=== PATIENT | female | born 1930 | race Hispanic/Latino ===

== ENCOUNTER 2019-05-16 16:47 | Inpatient (IN) | payer MEDICARE ==
[~2019-05-16] VITALS: Ht 152.4 cm; Wt 65.8 kg
--- NOTE | 2019-05-16 17:08 | NUR ---
RT NOTIFIED OF NEED FOR BIPAP AT THIS TIME; DR KOROMA BEDSIDE AT THIS TIME
[2019-05-16 17:38] LABS: BASOPHILS # (AUTO) 0.1 (0.0-0.1); BASOPHILS % 0.4 % (0.0-1.0); EOSINOPHILS # (AUTO) 0.1 (0.0-0.4); EOSINOPHILS % 0.4 % (0.0-6.0); HEMATOCRIT 32.2 % (34.2-44.1); HEMOGLOBIN 10.2 g/dL (12.0-16.0); LYMPHOCYTES # (AUTO) 1.6 (1.0-3.2); LYMPHOCYTES % 7.9 % (18.0-39.1); MEAN CORPUSCULAR HEMOGLOBIN 28.7 pg (28-32); MEAN CORPUSCULAR HGB CONC 31.7 g/dL (31-35); MEAN CORPUSCULAR VOLUME 90.7 fL (81-99); MONOCYTES # (AUTO) 0.7 (0.2-0.8); MONOCYTES % 3.2 % (4.4-11.3); NEUTROPHILS # (AUTO) 17.5 (2.1-6.9); NEUTROPHILS % 86.8 % (38.7-80.0); PLATELET COUNT 275 x10e3/uL (140-360); RED BLOOD COUNT 3.55 x10e6/uL (3.6-5.1); RED CELL DISTRIBUTION WIDTH 14.6 % (11.7-14.4)
[2019-05-16 17:53] LABS: ALBUMIN 3.5 g/dL (3.5-5.0); ALBUMIN/GLOBULIN RATIO 0.9 (0.8-2.0); ANION GAP 16.9 mmol/L (8-16); CALCIUM 9.6 mg/dL (8.4-10.2); CREATININE, SERUM 1.13 mg/dL (0.57-1.11); POTASSIUM 3.9 mmol/L (3.5-5.1)
[2019-05-16 17:59] LABS: CREATINE KINASE MB 0.9 ng/mL (0-5.0)
[2019-05-16] MEDS ORDERED: ONDANSETRON HCL INJ 2MG/ML 2ML 2 MG/ML VIAL IV PRN (18:00)
[2019-05-16] MEDS ORDERED: SODIUM CHLORIDE 0.9% 1000ML 1,000 ML IV SCH (18:00)
--- NOTE | 2019-05-16 18:02 | NUR ---
pt straight cath per md orders via aseptic technique; urine output approx 600 cc md notified; ua collected and sent to lab
[2019-05-16] MEDS: PIPER-TAZ 3.375 GM 50 ML IV SCH (18:11)
[2019-05-16] MEDS: SODIUM CHLORIDE 0.9% 1000ML 1,000 ML IV SCH ×2 (18:11→19:57)
--- NOTE | 2019-05-16 18:12 | Diagnostic Imaging Report ---
Examination: Single AP view of the chest. COMPARISON: None. INDICATION: Shortness of breath, CHF, recently hospitalized for pneumonia IMPRESSION: 1. Lines and Tubes: Left upper chest multiple lead cardiac device. 2. Lungs are well-inflated. Bilateral interstitial opacities extending from the alfonso. Increased bibasilar density and obscuration of bilateral hemidiaphragms consistent with bilateral pleural effusions and likely underlying compressive atelectasis or consolidation.. Findings likely represent decompensated CHF. 3. Cardiac silhouette is obscured. Central pulmonary venous congestion. 4. No acute bony abnormalities. Signed by: Dr. Brent De Santiago M.D. on 05/16/2019 6:08 PM
[2019-05-16 18:27] LABS: CLARITY,URINE SL CLOUDY (CLEAR); COLOR,URINE YELLOW (YELLOW); LEUKOCYTE ESTERASE ,URINE NEGATIVE (NEGATIVE); NITRITE,URINE NEGATIVE (NEGATIVE); PROTEIN,URINE DIPSTICK 1+ (NEGATIVE); URINE UROBILINOGEN 0.2 mg/dL (0.2 - 1)
[2019-05-16 18:28] LABS: BILIRUBIN,URINE NEGATIVE (NEGATIVE); KETONES,URINE NEGATIVE (NEGATIVE)
[2019-05-16 18:39] LABS: ABG HCO3 23 mmol/L (23-28); ABG PCO2 38 mmHg (41-51); ABG PH 7.39 (7.31-7.41); ABG PO2 70 mmHg (80-105)
[2019-05-16 18:48] LABS: BACTERIA,URINE MODERATE /HPF; EPITHELIAL CELLS,URINE FEW /LPF; RBC,URINE 0-5 /HPF (0-5)
[2019-05-16] MEDS ORDERED: LEVOFLOXACIN 750MG/D5W 150ML 150 ML IV SCH (19:15)
[2019-05-16 23:00] VITALS: BP 139/68
[2019-05-16 23:58] VITALS: BP 139/68
[2019-05-17] VITALS (26 sets, daily range): BP systolic 92–164; BP diastolic 49–72
[2019-05-17] MEDS: PIPER-TAZ 3.375 GM 50 ML IV SCH ×3 (00:37→12:15)
[2019-05-17] MEDS ORDERED: TRESIBA100 UNIT/1 SQ (02:42)
[2019-05-17] MEDS ORDERED: FUROSEMIDE40 MG PO (02:42)
[2019-05-17] MEDS ORDERED: GABAPENTIN300 MG PO (02:42)
[2019-05-17] MEDS ORDERED: WARFARIN SODIUM3 MG PO (02:42)
[2019-05-17] MEDS ORDERED: MEGARED OMEGA-1 EAC1 PO (02:42)
[2019-05-17] MEDS ORDERED: LISINOPRIL10 MG PO (02:42)
[2019-05-17] MEDS ORDERED: LEVOTHYROXINE50 MCG PO (02:42)
[2019-05-17] MEDS ORDERED: TRADJENTA5 MG PO (02:42)
[2019-05-17] MEDS ORDERED: SIMVASTATIN40 MG PO (02:42)
[2019-05-17] MEDS ORDERED: VITAMIN D400 UNIT PO (02:42)
[2019-05-17 02:57] LABS: CREATINE KINASE MB 1.9 ng/mL (0-5.0)
[2019-05-17 05:42] LABS: BASOPHILS # (AUTO) 0.1 (0.0-0.1); BASOPHILS % 0.4 % (0.0-1.0); EOSINOPHILS # (AUTO) 0.1 (0.0-0.4); EOSINOPHILS % 0.6 % (0.0-6.0); HEMATOCRIT 24.6 % (34.2-44.1); HEMOGLOBIN 7.7 g/dL (12.0-16.0); LYMPHOCYTES # (AUTO) 1.7 (1.0-3.2); LYMPHOCYTES % 11.9 % (18.0-39.1); MEAN CORPUSCULAR HEMOGLOBIN 28.6 pg (28-32); MEAN CORPUSCULAR HGB CONC 31.3 g/dL (31-35); MEAN CORPUSCULAR VOLUME 91.4 fL (81-99); MONOCYTES # (AUTO) 0.6 (0.2-0.8); MONOCYTES % 4.1 % (4.4-11.3); NEUTROPHILS # (AUTO) 11.4 (2.1-6.9); NEUTROPHILS % 81.9 % (38.7-80.0); PLATELET COUNT 180 x10e3/uL (140-360); RED BLOOD COUNT 2.69 x10e6/uL (3.6-5.1); RED CELL DISTRIBUTION WIDTH 14.7 % (11.7-14.4)
[2019-05-17 06:08] LABS: CREATINE KINASE MB 1.8 ng/mL (0-5.0)
[2019-05-17 06:47] LABS: CALCIUM 8.2 mg/dL (8.4-10.2); CREATININE, SERUM 1.03 mg/dL (0.57-1.11)
[2019-05-17] MEDS ORDERED: DEXTROSE 50% SYRINGE 50 ML IV PRN (07:00)
[2019-05-17] MEDS: INSULIN LISPRO 100 UNIT/1 ML 3ML VIAL SQ SCH ×4 (08:24→20:54)
[2019-05-17] MEDS: FAMOTIDINE 20 MG/2 ML VIAL IV SCH ×2 (08:24→17:24)
--- NOTE | 2019-05-17 13:34 | History and Physical ---
HISTORY OF PRESENT ILLNESS: The patient is an 88-year-old female, who was recently discharged about 2 weeks ago from [facility] for pneumonia. The patient was brought from [place] to [place] by her daughter and on route, the patient noted that she had increased shortness of breath and at this point of time came to the office yesterday. A chest x-ray revealed acute bilateral pneumonia and also congestive heart failure. The patient was sent to the emergency room, kept in ICU with a BiPAP machine for acute respiratory failure and also for congestive heart failure. PAST MEDICAL HISTORY: History of pneumonia as mentioned, history of CHF, history of diabetes mellitus, history of hypertension, history of hyperlipidemia, history of anemia. PAST SURGICAL HISTORY: History of CABG, history of cholecystectomy, history of AICD placement, history of carotid endarterectomy, history of bladder suspension. SOCIAL HISTORY: No EtOH. No IV drug abuse. The patient is living at this point of time with her daughter. REVIEW OF SYSTEMS: Negative for chest pain. Positive for some shortness of breath. No nausea, no vomiting. No diarrhea. No constipation. No rectal bleeding. Positive for urinary retention according to her and daughter. The patient does fine from [id number], but has urinary retention, has been cathed straight cathed before. ALLERGIES: THE PATIENT HAS NO DRUG ALLERGIES. PHYSICAL EXAMINATION: GENERAL: The patient is alert and oriented x3, on BiPAP at this time. VITAL SIGNS: Temperature is 97.8, pulse of 78, respirations of 22, blood pressure is 127/63, pulse oximetry 100% on BiPAP. HEENT: Normocephalic, atraumatic. CVS: S1 and S2, tachy. ABDOMEN: Nontender and nondistended. EXTREMITIES: No clubbing, no cyanosis, and positive for 2+ edema. LABORATORY VALUES: The patient's initial white count is 20,000, hemoglobin of 10.2, hematocrit of 32.2, neutrophil count is 86.8. Initial chemistry showed a creatinine of 1.13, BUN of 33. Lactic acid was 2.5 with BNP of 1538. Urine, which showed moderate amount of bacteria. Serology, influenza A and B negative. MICROBIOLOGY: Blood cultures are pending. IMAGING STUDIES: Chest x-ray shows pulmonary edema and pneumonia. The patient's medications at this time the patient is on Zosyn and Levaquin. The patient is also on sodium chloride and Zofran and a BiPAP. ASSESSMENT: 1. Sepsis, probably from pneumonia. Plan will be to consult Dr. Gonzalez and also a consult for sputum culture. CT scan of the lungs will be needed. 2. Pneumonia, community-acquired. 3. Urinary retention. 4. Acute renal failure. 5. History of coronary artery disease with a history of automatic implantable cardioverter-defibrillator and placement and history of carotid endarterectomy and finally acute on chronic congestive heart failure. PLAN: The plan would be to do echocardiogram. Consult Dr. Mendez. Also consult with Dr. Gonzalez was done. The patient needs sputum cultures and also will put on insulin sliding for the diabetes. We will continue to monitor the patient. We will keep the patient in the ICU for acute respiratory failure. Further recommendation per clinical course. We will continue to monitor the patient. MD ANABEL Tucker/MODL /[id number]
[2019-05-17] MEDS ORDERED: FUROSEMIDE INJ 10 MG/ML 4 ML VIAL IV ONE (15:30)
[2019-05-17] MEDS ORDERED: FUROSEMIDE INJ 10 MG/ML 4 ML VIAL ONE (15:33)
--- NOTE | 2019-05-17 16:16 | Diagnostic Imaging Report ---
Chest ultrasound. History: Pleural effusions. Comparison: Chest x-ray from yesterday. Discussion: Transverse and longitudinal sonographic imaging of the bilateral posterior chest was performed. Moderate bilateral pleural effusions are identified. IMPRESSION: Moderate bilateral pleural effusions. Signed by: uJng Flores on 05/17/2019 4:13 PM
[2019-05-17 16:30] LABS: ALBUMIN 2.7 g/dL (3.5-5.0); BILIRUBIN,DIRECT 0.6 mg/dL (0.0-0.5)
--- NOTE | 2019-05-17 17:06 | Diagnostic Imaging Report ---
Abdominal ultrasound. History: Pneumonia, hypoxia. Comparison: None available. Discussion: Transverse and longitudinal images of the abdomen were obtained demonstrating a liver of normal size and echogenicity measuring 13.5 cm in length. The portal vein is patent with hepatopetal flow and is within normal limits measuring 9 mm in diameter. The biliary tree is within normal limits with the common bile duct measuring 8 mm in diameter. The gallbladder is absent. The kidneys are normal in size bilaterally without evidence of hydronephrosis, stones, or mass. There is mild increase in cortical echogenicity bilaterally. The right kidney measures 9.9 cm and the left kidney measures 10.1 cm in length. The spleen is normal in size and appearance measuring 7.8 cm in length. The pancreatic head and body are visualized and are normal in appearance. The abdominal aorta and IVC are within normal limits. There is no evidence of free fluid. IMPRESSION: 1. Mildly increased renal echogenicity suggestive of medical renal disease. 2. Status post cholecystectomy. Otherwise unremarkable abdominal ultrasound. Signed by: Jung Flores on 05/17/2019 5:03 PM
[2019-05-17] MEDS: CEFEPIME 1GM/NS 0.9% 50 ML 50 ML IV SCH (17:24)
[2019-05-17] MEDS: ENOXAPARIN 30 MG/0.3 ML SYR SC SCH (17:24)
[2019-05-17] MEDS: FUROSEMIDE INJ 10 MG/ML 2 ML VIAL IV SCH (17:24)
[2019-05-17] MEDS: VANCOMYCIN 1GM/NS 250 ML 250 ML IV SCH (18:16)
--- NOTE | 2019-05-17 21:11 | Consultation ---
DATE OF CONSULTATION: 05/17/2019 Pulmonary Medicine Consult. REFERRING PHYSICIAN: Chucho Cerna MD. REASON FOR REFERRAL: Abnormal chest radiography. HISTORY OF PRESENT ILLNESS: Ms. Waldrop is a pleasant 88-year-old female with shortness of breath. The patient was discharged a couple weeks ago from the outside hospital with pneumonia. The patient was brought to [place] to live with her daughter. However, the patient had increasing shortness of breath, chest x-ray with combined pneumonia/overload appearance. The patient had a pattern of worsening. Therefore, she came to the emergency room. The patient at this point, had to get BiPAP for rescue given her extensive shortness of breath. She is admitted to the ICU. I am consulted. PAST MEDICAL HISTORY: CHF, LVEF 40%, moderate MR, CABG, AICD, carotid endarterectomy, diabetes, hypertension, hyperlipidemia, anemia, history of bladder suspension, recent pneumonia. MEDICATIONS: Medication list reviewed per the chart record. ALLERGIES: NO KNOWN DRUG ALLERGIES. SOCIAL HISTORY: No smoking. No drinking. No drugs. The patient only smokes one year of her life. She is from [place] where she was born. She was in 2006. She lives alone but recently has been with her children. FAMILY HISTORY: Noncontributory. REVIEW OF SYSTEMS: GENERAL: No weight changes. OPHTHALMOLOGIC: No double vision. ENT: No mouth ulcers. ENDOCRINE: Unknown thyroid disease. CARDIAC: No recent heart attack. GI: No constipation. : No blood in urine. DERMATOLOGIC: No rash. NEUROLOGIC: No seizures. PSYCHIATRIC: No depression. OBJECTIVE: VITAL SIGNS: Afebrile, vital signs noted and reviewed per the chart record. On admission, her blood pressure was 170/90, heart rate 93. GENERAL: In no acute distress, slow affect, slow demeanor, difficult historian. HEENT: Normocephalic, atraumatic. NECK: Supple. Throat midline. LUNGS: Bilateral air entry, few crackles. CARDIOVASCULAR: S1, S2. No murmurs, rubs, or gallops. ABDOMEN: Soft, nontender. EXTREMITIES: No clubbing, no cyanosis. There is only trace edema. INTEGUMENT: No rash. No purpura. LABORATORY DATA: White count 14, 25 hematocrit, 108 platelets. 31 BUN, 0.03, creatinine. LFTs noted unremarkable. The patient's albumin was 3.5 on admission. Troponin 0.29. ABG come in was 7.39/38/70 with a white count come in of 20,000. IMPRESSION: 1. Abnormal chest radiography, clinically pulmonary edema. 2. Abnormal chest radiography, bilateral moderate-sized pleural effusions. 3. Treat for pneumonia hospital acquired prior to admission. 4. Systolic acute on chronic CHF, LVEF 40%. 5. Apparent mitral valve replacement seen per preliminary echo report. 6. 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 7. History of AICD line. 8. Peripheral vascular disease, status post CVA. 9. Diabetes. 10. Hypertension. 11. Hyperlipidemia. 12. Anemia. PLAN At this point, continue antibiotics for hospital-acquired organisms and consider deescalation days that come. Blood cultures are pending. Order sputum culture as she is able to give. In the meanwhile check ultrasound of thoraces and consider thoracentesis. Optimize cardiac medications as feasible. Try to get more history of course from Cardiology and the final echo report to confirm the extent of any coronary artery disease or valvulopathy that were present in the past. Thank you very much, Dr. Cerna for allowing me a chance to participate in the care of Ms. Waldrop. Please call for any questions. MD KOKO Phelan/HEIDY /[id number]
--- NOTE | 2019-05-17 21:56 | Consultation ---
DATE OF CONSULTATION: 05/17/2019 ADDENDUM: IMPRESSION: 1. Acute hypoxic respiratory failure. 2. Suspected pneumonia. 3. Acute on chronic systolic heart failure. 4. Coronary artery disease, status post bypass. 5. Carotid artery stenosis, status post carotid endarterectomy. 6. Chronic systolic heart failure, status post AICD. 7. Acute kidney injury versus chronic kidney disease. 8. Hypertension. 9. Hyperlipidemia. 10. Diabetes mellitus. 11. Anemia. RECOMMENDATIONS: Obtain echocardiogram. Monitor on telemetry. We will continue current cardiac medications. Continue supportive care. Antibiotics per Primary Service. Once the patient's infection has resolved, she will need diuresis for her systolic heart failure. In the meantime, monitor volume status closely, attempt to keep the patient euvolemic, two net-negative daily. Thank you for this consult. We will continue to follow. Syl Nowak MD ABS/MODL /[id number]
--- NOTE | 2019-05-17 22:20 | NUR ---
Report given to [facility]. Pt transferred. No complaints at this time.
--- NOTE | 2019-05-17 22:26 | Consultation ---
DATE OF CONSULTATION: 05/17/2019 REASON FOR CONSULTATION: Pneumonia, sepsis, recommendation of antibiotic. HISTORY OF PRESENT ILLNESS: This patient, who is currently in the intensive care unit, is short of breath. History was taken mainly from the family. She is an 88-year-old female. She has been sick for the last couple of months. The first was on March 07 when she was in the hospital in different city for most week, was discharged home, came to visit her family here in [place], and she was taken back home. Again, she got short of breath around on April 25 something. She was admitted again to the hospital. She was there for a week, discharged home, but she continued to have shortness of breath, getting progressively worse, especially at night, so the patient and daughter brought her here to see Dr. Cerna and Dr. Cerna admitted her to the hospital. The patient is currently in the intensive care unit and on BiPAP. The patient who has history of congestive heart failure, diabetes mellitus, neuropathy, hypertension, hyperlipidemia, and anemia. PAST SURGICAL HISTORY: CABG, cholecystectomy, AICD placement, carotid endarterectomy and bladder suspension. ALLERGIES: NKA. SOCIAL HISTORY: There is no smoking, drug abuse, or alcohol abuse. FAMILY HISTORY: Hypertension. REVIEW OF SYSTEMS: At the present time, the patient has shortness of breath. There is no fever or chills, but according to the family she got worse in the last few days. There is no chest pain, but there is shortness of breath, worse if she lay down. There is no nausea, no vomiting, no diarrhea, no urgency, no frequency, no skin rash. She does have chronic pain in the both knees. All other symptoms beside above is negative. MEDICATION LIST: Reviewed. The patient is currently on Zosyn, Pepcid, levofloxacin, Lovenox and Zofran. HOME MEDICATIONS: List reviewed. PHYSICAL EXAMINATION: GENERAL: She is alert, but short of breath. VITAL SIGNS: Stable. There is no fever since admission. Her heart rate is 78, respiration is 22. HEENT: She is not icteric, normocephalic. NECK: Supple. CHEST: Few crackles bilaterally. COR: S1 and S2. ABDOMEN: Soft. Bowel sounds present. No tenderness. EXTREMITIES: No edema. SKIN: No rash. LABORATORY DATA: When she first came, her white count was 20.12, hemoglobin 10. Her platelet is 275. Sodium 140, potassium 4.0, creatinine 1.03, glucose 119. Her chest x-ray is reviewed. There are bilateral interstitial opacities. IMPRESSION: Respiratory failure, concerned about [id number]-[id number] congestive heart failure, fluid overload, concerned about community-acquired pneumonia or healthcare-associated pneumonia since she was in the hospital recently. We will put the patient on vancomycin and cefepime and discontinue Zosyn since Zosyn has high salt load. We will also obtain liver enzymes, amylase and lipase. We will get the BMP. Cardiology is consulted. Recommend echocardiogram. Discussed with Pulmonary, may end up on a respiratory support. Discussed with the family. Diabetes mellitus. We will follow with you. Thank you for asking me to see this patient. Discussed with the family. Discussed with Pulmonary and Internal Medicine. MD GÓMEZ Sears/HEIDY /[id number]
--- NOTE | 2019-05-17 22:30 | NUR ---
resumed pt care. upon assessment pt requesting bipap. respiratory notified. chatterjee draining to gravity. tele in place. will cont to follow poc. call mckeon within reach.
[2019-05-18] VITALS (8 sets, daily range): BP systolic 110–173; BP diastolic 61–99
--- NOTE | 2019-05-18 | NUR ---
pt made npo at time for procedure. no distress noted. call mckeon within reach.
--- NOTE | 2019-05-18 01:00 | NUR ---
pt restless at time. sitting at side of bed. after minutes of sitting at bedside. pt was assisted back to bed and bipap replaced. no distress noted. call mckeon within reach.
--- NOTE | 2019-05-18 03:02 | NUR ---
spoke to dr leyva in regards to pt and ptt orders. stated ok to draw in with am labs. notified laboratory.
[2019-05-18] MEDS: CEFEPIME 1GM/NS 0.9% 50 ML 50 ML IV SCH ×2 (03:39→17:39)
[2019-05-18] MEDS: VANCOMYCIN 1GM/NS 250 ML 250 ML IV SCH ×2 (04:32→17:39)
--- NOTE | 2019-05-18 04:37 | Consultation ---
DATE OF CONSULTATION: 05/17/2019 Cardiology Consultation REQUESTING PHYSICIAN: Chucho Cerna MD. REASON FOR CONSULTATION: Congestive heart failure. HISTORY OF PRESENT ILLNESS: This is an 88-year-old woman with congestive heart failure, hypertension, hyperlipidemia, diabetes mellitus, and AICD, who presents with complaints of shortness of breath. The patient was reportedly admitted in the hospital 2 weeks ago in [place] for pneumonia. After discharge, she was brought to [place] from [place] by her daughter. The patient had increasing shortness of breath yesterday and was brought to the office for further evaluation. Chest x-ray revealed bilateral pneumonia and congestive heart failure, and was therefore sent to the ER for a further care. She was subsequently admitted to the ICU for BiPAP support for her acute respiratory failure. She denies any chest pain, palpitations, edema, fever, or chills, but does endorse symptoms suggestive of orthopnea and PND. REVIEW OF SYSTEMS: Negative except as per HPI. PAST MEDICAL HISTORY: 1. Congestive heart failure status post AICD. 2. Hypertension. 3. Hyperlipidemia. 4. Coronary artery disease status post CABG. PAST SURGICAL HISTORY: 1. CABG. 2. Cholecystectomy. 3. Carotid endarterectomy. 4. History of bladder suspension. ALLERGIES: PLEASE SEE EMR. MEDICATIONS: Please see medication list. SOCIAL HISTORY: No alcohol, illicit drugs, or prior tobacco use. FAMILY HISTORY: Noncontributory to current illness. PHYSICAL EXAMINATION: VITAL SIGNS: Temperature 98.4 degrees, pulse 84, respiratory rate 16, blood pressure 128/64, and oxygen saturation 97% on 2 L nasal cannula. GENERAL: Elderly woman. No acute distress. Awake and alert. HEENT: Normocephalic, atraumatic. Pupils equal. No scleral icterus. NECK: Supple. No thyromegaly or cervical lymphadenopathy. No carotid bruits. LUNGS: Clear to auscultation bilaterally. No wheezes or crackles. CARDIOVASCULAR: Normal rate. Regular rhythm. No murmur. Normal S1, S2. ABDOMEN: Soft, nontender. EXTREMITIES: 1+ pitting edema. NEUROLOGIC: Nonfocal exam. LABORATORY DATA: WBC 13.98, hemoglobin 7.7, hematocrit 24.6, platelets 180. Sodium 140, potassium 4, chloride 105, CO2 of 25, BUN 31, creatinine 1.03. Troponin 0.290. BNP 1538. DIAGNOSTIC DATA: Chest x-ray, bilateral interstitial opacities extending from the alfonso, increased bibasilar density and obstruction of bilateral hemidiaphragms consistent with bilateral pleural effusions and likely underlying compressive atelectasis or consolidation. Central pulmonary venous congestion. EKG, normal sinus rhythm. TELEMETRY: A paced. IMPRESSION: 1. Acute hypoxic respiratory failure. 2. Suspected pneumonia. 3. Acute on chronic systolic heart failure. 4. Coronary artery disease, status post bypass. 5. Carotid artery stenosis, status post carotid endarterectomy. 6. Chronic systolic heart failure, status post AICD. 7. Acute kidney injury versus chronic kidney disease. 8. Hypertension. 9. Hyperlipidemia. 10. Diabetes mellitus. 11. Anemia. RECOMMENDATIONS: Obtain echocardiogram. Monitor on telemetry. We will continue current cardiac medications. Continue supportive care. Antibiotics per Primary Service. Once the patient's infection has resolved, she will need diuresis for her systolic heart failure. In the meantime, monitor volume status closely, attempt to keep the patient euvolemic, two net-negative daily. Thank you for this consult. We will continue to follow. Syl Nowak MD ABS/MODL /[id number]
--- NOTE | 2019-05-18 04:38 | NUR ---
pt removed bipap at time. no distress noted. o2 nc 3 lit 100%. no ss of distress noted. call mckeon within reach.
[2019-05-18] MEDS: FUROSEMIDE INJ 10 MG/ML 2 ML VIAL IV SCH ×2 (05:23→17:40)
[2019-05-18 05:33] LABS: BASOPHILS # (AUTO) 0.1 (0.0-0.1); BASOPHILS % 0.4 % (0.0-1.0); EOSINOPHILS # (AUTO) 0.2 (0.0-0.4); EOSINOPHILS % 1.3 % (0.0-6.0); HEMATOCRIT 25.4 % (34.2-44.1); HEMOGLOBIN 8.2 g/dL (12.0-16.0); LYMPHOCYTES # (AUTO) 1.6 (1.0-3.2); LYMPHOCYTES % 10.3 % (18.0-39.1); MEAN CORPUSCULAR HEMOGLOBIN 29.5 pg (28-32); MEAN CORPUSCULAR HGB CONC 32.3 g/dL (31-35); MEAN CORPUSCULAR VOLUME 91.4 fL (81-99); MONOCYTES # (AUTO) 0.6 (0.2-0.8); MONOCYTES % 3.7 % (4.4-11.3); NEUTROPHILS # (AUTO) 12.9 (2.1-6.9); NEUTROPHILS % 83.2 % (38.7-80.0); PLATELET COUNT 213 x10e3/uL (140-360); RED BLOOD COUNT 2.78 x10e6/uL (3.6-5.1); RED CELL DISTRIBUTION WIDTH 14.8 % (11.7-14.4)
--- NOTE | 2019-05-18 05:47 | NUR ---
pump cont to beep. new iv access to right forearm 20g successful. pt tolerated well. call mckeon within reach.
[2019-05-18 05:59] LABS: ANION GAP 15.5 mmol/L (8-16); CALCIUM 8.6 mg/dL (8.4-10.2); CREATININE, SERUM 1.16 mg/dL (0.57-1.11); MAGNESIUM 1.7 MG/DL (1.3-2.1); POTASSIUM 3.5 mmol/L (3.5-5.1)
[2019-05-18 06:45] LABS: INR 1.6; PROTHROMBIN TIME 19.7 seconds (11.9-14.5)
[2019-05-18 06:46] LABS: PARTIAL THROMBOPLASTIN TIME 43.4 seconds (23.8-35.5)
--- NOTE | 2019-05-18 06:48 | NUR ---
pt stated needed to have bm. attempted to get up to bsc pt became sob. assisted back to bed and bipap replaced. respiratory notified.
--- NOTE | 2019-05-18 07:00 | NUR ---
pt refusing to wear bipap. 02 nc placed back on. 100% on 3 lit nc. no distress noted. call mckeon within reach.
[2019-05-18] MEDS: INSULIN LISPRO 100 UNIT/1 ML 3ML VIAL SQ SCH ×4 (07:30→21:41)
[2019-05-18] MEDS: FAMOTIDINE 20 MG/2 ML VIAL IV SCH ×3 (09:59→21:43)
--- NOTE | 2019-05-18 09:59 | Progress Note ---
DATE: 05/18/2019 SUBJECTIVE: An 88-year-old female, who comes in with bilateral pleural effusion, possibly pneumonia versus congestive heart failure. The patient is feeling a bit better today on BiPAP, continues to be on BiPAP, followed by Cardiology and by Dr. Gonzalez for Pulmonology. Currently, no chest pain. Positive for shortness of breath. OBJECTIVE: VITAL SIGNS: Temperature is 97.8, pulse of 87, respirations of 20, blood pressure is 144/61, and pulse oximetry 100% on 3 liters of oxygen. CVS: S1 and S2, tachy. ABDOMEN: Nontender and nondistended. EXTREMITIES: No clubbing. No cyanosis. Trace edema present. LABORATORY VALUES: White count is coming down to 15,000, hemoglobin of 8.2, hematocrit 25.4, and neutrophil count of 83.2. Chemistry shows sodium 143, potassium 3.5, BUN of 29, and creatinine of 1.16. The patient had a fluid tap yesterday, awaiting cell studies. MICROBIOLOGY: Blood cultures, no growth so far. IMAGING STUDIES: Abdominal ultrasound done yesterday showed mild increased renal echogenicity with mild medical renal disease. ASSESSMENT: At this time is: 1. Pneumonia. The patient has been changed from Zosyn to vancomycin by Dr. Brown. 2. Acute on chronic congestive heart failure. Continue with monitoring ins and outs and fluid load. Echocardiogram has been done. The patient is also on cefepime. 3. Debility, will need SNF placement as an outpatient basis. 4. Leukocytosis, better with change of antibiotics. 5. Pleural effusion. Awaiting tap results. 6. Hypertension. 7. History of peripheral vascular disease, status post cerebrovascular accident. 8. History of AICD and history of coronary artery bypass grafting. PLAN: Continue to monitor the patient in IMCU. Further recommendation per clinical course. We will follow the patient along with consultants. MD ANABEL Tucker/MODL /[id number]
[2019-05-18 10:24] LABS: ALBUMIN 2.8 g/dL (3.5-5.0); BILIRUBIN,DIRECT 0.5 mg/dL (0.0-0.5)
[2019-05-18 10:47] LABS: FREE THYROXINE INDEX 2.697 (1.4-3.8); THYROID STIMULATING HORMONE 3.635 uIU/mL (0.350-4.940)
--- NOTE | 2019-05-18 11:50 | Progress Note ---
DATE: 05/18/2019 Cardiology Progress Note SUBJECTIVE: The patient denies chest pain or shortness of breath. Currently on BiPAP. OBJECTIVE: VITAL SIGNS: Temperature 97.4 degrees, pulse 95, respiratory rate 20, blood pressure 173/99, oxygen saturation 100% on BiPAP. GENERAL: Elderly woman, frail. No acute distress. Awake and alert. LUNGS: Clear to auscultation bilaterally. No wheezes or crackles. CARDIOVASCULAR: Normal rate, regular rhythm. No murmur. Normal S1, S2. ABDOMEN: Soft, nontender. EXTREMITIES: Trace edema. CARDIAC MEDICATIONS: Lasix 20 mg IV b.i.d. LABORATORY DATA: WBC 15.47, hemoglobin 8.2, hematocrit 25.4, platelets 213, sodium 143, potassium 3.5, chloride 105, CO2 of 26, BUN 29, and creatinine 1.16. TELEMETRY: Normal sinus rhythm with PVCs. IMPRESSION: 1. Acute hypoxic respiratory failure. 2. Suspected pneumonia. 3. Acute on chronic systolic heart failure. 4. Coronary artery disease, status post bypass. 5. Carotid artery stenosis, status post carotid endarterectomy. 6. Chronic systolic heart failure, status post automatic implantable cardioverter defibrillator. 7. Acute kidney injury versus chronic kidney disease. 8. Hypertension. 9. Hyperlipidemia. 10. Diabetes mellitus. 11. Anemia. RECOMMENDATIONS: Echocardiogram is pending. We will review the images. Monitor patient closely on telemetry. Continue diuretics. Increase frequency. Monitor creatinine closely. Replete electrolytes. Continue supportive care. Antibiotics per primary service. Thank you for this consult. We will continue to follow. Syl Nowak MD ABS/MODL /[id number]
--- NOTE | 2019-05-18 14:05 | Diagnostic Imaging Report ---
Chest, portable AP view History: Status post right thoracentesis Comparison: 05/16/2019 IMPRESSION: There is no postprocedural pneumothorax. No significant right pleural effusion remains. Trace left pleural effusion is present. The heart is within normal limits of size. Patient is status post median sternotomy. Left subclavian pacemaker is in place. Signed by: Dax Burroughs MD on 05/18/2019 2:02 PM
--- NOTE | 2019-05-18 14:07 | Diagnostic Imaging Report ---
Ultrasound guided right thoracentesis, 05/18/2019. Clinical History: Right pleural effusion. Modality: Ultrasound. Sedation: None. Regional Service Manager: Dax Burroughs MD. Applied Psychology Chair: None. Estimated Blood Loss: 1cc Specimen: 700 cc of yellow fluid. Technique: Informed consent was obtained. The risks of pain, bleeding, infection, lung collapse/pneumothorax, injury to adjacent structures, and adverse medication reactions were discussed with the patient. The patient's right hemithorax was scanned from the back, with the patient in a sitting position. After the largest fluid pocket area was marked, the skin was prepped and draped in the usual sterile manner. The area was anesthetized with 1% lidocaine, a 5 Barb[place] one-step was advanced into the pleural space under ultrasound guidance. After completion of drainage, the catheter was removed. There was no evidence of immediate complication. Post procedure chest radiograph is no evidence of pneumothorax. Impression: Successful and uncomplicated ultrasound guided right thoracentesis. Signed by: Dax Burroughs MD on 05/18/2019 2:03 PM
[2019-05-18 15:17] LABS: BODY FLUID APPEARANCE SL.CLOUDY; BODY FLUID COLOR YELLOW; BODY FLUID TYPE PLEURAL
[2019-05-18 15:18] LABS: RBC,BODY FLUID 1045 cells/uL; WBC,BODY FLUID 110 cells/uL
[2019-05-18 15:22] LABS: LYMPHOCYTES,BODY FLUID 24 %; MONO/MACROPHG,BODY FLUID 29 %; NEUTROPHILS,BODY FLUID 43 %
[2019-05-18 15:23] LABS: OTHER CELLS,BODY FLUID 4 %
[2019-05-18] MEDS: ENOXAPARIN 30 MG/0.3 ML SYR SC SCH (17:00)
--- NOTE | 2019-05-18 21:42 | NUR ---
Pulmonary Medicine DATE 05/18/2019 SUBJECTIVE: Still SOB today chatterjee in place, on diuresis thoracentesis done, 700 cc out. c/w transudate RA 98% saturation bipap at night REVIEW OF SYSTEMS: No weight changes. No blood in urine. OBJECTIVE: VITAL SIGNS: vital signs noted and reviewed per the chart record. GENERAL: no acute distress, slow affect, mild dyspnea HEENT: Normocephalic, atraumatic. NECK: Supple. Throat midline. LUNGS: Bilateral air entry decreased at bases, few crackles. CARDIOVASCULAR: S1, S2. No murmurs, rubs, or gallops. ABDOMEN: Soft, nontender. EXTREMITIES: No clubbing, no cyanosis. trace edema. INTEGUMENT: No rash. No purpura. LABORATORY DATA: wbc 15k, hct 25, k 3.5, cr 1.2. IMPRESSION: 1. Abnormal chest radiography, clinically pulmonary edema suggested. 2. Abnormal chest radiography, bilateral moderate-sized pleural effusions. --s/p right thoracentesis c/w transudate 3. Treat for pneumonia hospital acquired prior to admission. 4. Systolic acute on chronic CHF, LVEF 40%. 5. hx MVR 6. 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 CAD? 7. Hx AICD 8. PVD, status post CEA. 9. Diabetes. 10. Hypertension. 11. Hyperlipidemia. 12. Anemia. PLAN continue antibiotics for hospital-acquired organisms diuresis thoracentesis today follow cultures cardiology evaluating cardiac structure and function Thank you very much, Dr. Cerna for allowing me a chance to participate in the care of Ms. Waldrop. Please call for any questions.
[2019-05-19] VITALS (8 sets, daily range): BP systolic 117–148; BP diastolic 55–92
[2019-05-19] MEDS: CEFEPIME 1GM/NS 0.9% 50 ML 50 ML IV SCH ×2 (04:08→17:00)
[2019-05-19] MEDS: VANCOMYCIN 1GM/NS 250 ML 250 ML IV SCH ×2 (04:39→16:15)
[2019-05-19 05:53] LABS: BASOPHILS # (AUTO) 0.1 (0.0-0.1); BASOPHILS % 0.4 % (0.0-1.0); EOSINOPHILS # (AUTO) 0.1 (0.0-0.4); EOSINOPHILS % 0.7 % (0.0-6.0); HEMATOCRIT 26.4 % (34.2-44.1); HEMOGLOBIN 8.2 g/dL (12.0-16.0); LYMPHOCYTES # (AUTO) 1.7 (1.0-3.2); LYMPHOCYTES % 10.6 % (18.0-39.1); MEAN CORPUSCULAR HEMOGLOBIN 28.7 pg (28-32); MEAN CORPUSCULAR HGB CONC 31.1 g/dL (31-35); MEAN CORPUSCULAR VOLUME 92.3 fL (81-99); MONOCYTES # (AUTO) 0.7 (0.2-0.8); MONOCYTES % 4.6 % (4.4-11.3); NEUTROPHILS # (AUTO) 13.2 (2.1-6.9); NEUTROPHILS % 82.6 % (38.7-80.0); PLATELET COUNT 223 x10e3/uL (140-360); RED BLOOD COUNT 2.86 x10e6/uL (3.6-5.1); RED CELL DISTRIBUTION WIDTH 14.9 % (11.7-14.4)
[2019-05-19] MEDS: FUROSEMIDE INJ 10 MG/ML 2 ML VIAL IV SCH ×2 (06:02→18:00)
[2019-05-19] MEDS: FAMOTIDINE 20 MG/2 ML VIAL IV SCH ×3 (06:02→20:54)
[2019-05-19 06:13] LABS: CALCIUM 8.8 mg/dL (8.4-10.2); CREATININE, SERUM 1.23 mg/dL (0.57-1.11)
[2019-05-19] MEDS: INSULIN LISPRO 100 UNIT/1 ML 3ML VIAL SQ SCH ×4 (07:30→20:48)
--- NOTE | 2019-05-19 07:36 | Diagnostic Imaging Report ---
EXAMINATION: CHEST SINGLE (PORTABLE) INDICATION: ^chf ^[id number] ^[id number] COMPARISON: 05/18/2019 FINDINGS: AP view TUBES and LINES: Stable 2-lead pacemaker device overlying the left upper chest with leads overlying the right uterine appendage and right ventricle. LUNGS: Lungs are well inflated. Worsening bilateral pulmonary edema. No new consolidations. Bibasilar atelectasis. PLEURA: Small bilateral pleural effusion, increased. No pneumothorax. HEART AND MEDIASTINUM: Stable mild enlargement of the cardiac silhouette. BONES AND SOFT TISSUES: No acute osseous lesion. Soft tissues are unremarkable. UPPER ABDOMEN: No free air under the diaphragm. IMPRESSION: Interval worsening bilateral pulmonary edema with increasing small bilateral pleural effusions. Signed by: Dr. Karly Moreno M.D. on 05/19/2019 7:32 AM
[2019-05-19] MEDS: POTASSIUM CHLORIDE 10MEQ EA PO SCH ×2 (09:00→09:56)
[2019-05-19] MEDS: POLYETHYLENE GLYCOL 3350 17 GM PACK PO SCH ×2 (09:56→17:59)
--- NOTE | 2019-05-19 10:57 | Progress Note ---
DATE: 05/19/2019 SUBJECTIVE: An 88-year-old female who comes in with pneumonia/congestive heart failure. The patient is currently in IMCU, on BiPAP continuously, currently hypoxic. The patient's medications include cefepime, Lovenox, famotidine, furosemide, insulin, MiraLAX, potassium, and vancomycin. Daughter is by the bedside, did complain of some constipation, otherwise short of breath. OBJECTIVE: VITAL SIGNS: Temperature is 97.7, pulse of 98, respirations of 18, blood pressure is 140/92, and pulse oximetry of 99% on BiPAP. HEENT: Normocephalic. The patient has BiPAP on. CVS: S1 and S2, tachy. ABDOMEN: Nondistended, nontender, soft. EXTREMITIES: Trace amount of edema present. LABORATORY VALUES: White count is 16,000, hemoglobin of 8.2, hematocrit of 26.4, patient's platelet count is 223. Chemistry shows sodium of 142, potassium is 3, BUN of 32, creatinine of 1.23, glucose has been running in the 250s to 280s. The patient's TSH was normal. The patient had a thoracentesis yesterday and pleural fluid shows yellow, cloudy, rbc's of 1047, neutrophils 43, glucose 157, LDH of 146. IMAGING: After thoracentesis, interval worsening bilateral pulmonary edema with increased small bilateral pleural effusion and stable 2-lead pacemaker in place. ASSESSMENT: An 88-year-old with: 1. Acute respiratory failure, hypoxic. 2. Acute on chronic congestive systolic heart failure. 3. History of coronary artery disease status post bypass. 4. Acute kidney injury. 5. Anemia of chronic kidney disease. 6. The patient has suspected pneumonia bilateral. 7. Debility. 8. Hyperlipidemia. PLAN: At this point of time will be to continue other medications. Antibiotics on board. ID is on board. The patient has also has diabetes mellitus and is on a sliding scale. DVT prophylaxis, GI prophylaxis, and Paula in place. Further recommendation per clinical course. We will continue to monitor the patient. The patient will be followed up by the consultants too and daily labs will be done. MD ANABEL Tucker/MODL /[id number]
--- NOTE | 2019-05-19 12:36 | NUR ---
Pulmonary Medicine DATE 05/19/2019 SUBJECTIVE: BM small eating small amounts standby assist to ambulate to rest room SOB noted 2 L/min oxygen low endurance REVIEW OF SYSTEMS: no headaches, no rash OBJECTIVE: VITAL SIGNS: vital signs noted and reviewed per the chart record. GENERAL: no acute distress, slow affect, mild dyspnea HEENT: Normocephalic, atraumatic. NECK: Supple. Throat midline. LUNGS: Bilateral air entry decreased at bases, few crackles. CARDIOVASCULAR: S1, S2. No murmurs, rubs, or gallops. ABDOMEN: Soft, nontender. EXTREMITIES: No clubbing, no cyanosis. trace edema. INTEGUMENT: No rash. No purpura. LABORATORY DATA: wbc 16k, hct 26 k 3.0, cr 1.23 IMPRESSION: 1. Abnormal chest radiography, clinically pulmonary edema suggested. 2. Abnormal chest radiography, bilateral moderate-sized pleural effusions. --s/p right thoracentesis c/w transudate 3. Treat for pneumonia hospital acquired prior to admission. 4. Systolic acute on chronic CHF, LVEF 40%. 5. hx MVR 6. 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 CAD? 7. Hx AICD 8. PVD, status post CEA. 9. Diabetes. 10. Hypertension. 11. Hyperlipidemia. 12. Anemia. PLAN continue antibiotics for hospital-acquired organisms diuresis thoracentesis done, follow fluid analysis. If SOB persists, will consider left thoracentesis follow cultures cardiology evaluating/optimizing cardiac structure and function Thank you very much, Dr. Cerna for allowing me a chance to participate in the care of Ms. Waldrop. Please call for any questions.
--- NOTE | 2019-05-19 16:59 | Progress Note ---
DATE: 05/19/2019 Cardiology Progress Note SUBJECTIVE: Ms. Waldrop remains weak and has some insomnia due to her BiPAP. PHYSICAL EXAMINATION: VITAL SIGNS: Afebrile, heart rate is 100, blood pressure is 148/83, and O2 saturations 100%. CARDIOVASCULAR: Regular rhythm, tachycardic. LUNGS: Occasional rhonchi bilaterally. LABORATORY DATA: Telemetry shows sinus tachycardia. Hemoglobin is 8.2 and WBC count is 16,000. Creatinine 1.2. Chest x-ray shows pleural effusions and pulmonary edema. ASSESSMENT: 1. Qwigf-zv-tlnmbfc systolic heart failure with respiratory failure. 2. Coronary artery disease, status post coronary artery bypass surgery. RECOMMENDATIONS: Echocardiogram was reviewed. Ejection fraction is 35%. The patient's medications are appropriate. I will add a beta-connor as well as an MAYA inhibitor and a cautious trial of spironolactone to help improve fluid status. MD CONCHA Davis/HEIDY /[id number]
[2019-05-19] MEDS: ENOXAPARIN 30 MG/0.3 ML SYR SC SCH (17:59)
[2019-05-19] MEDS: SPIRONOLACTONE 25 MG TAB PO SCH (17:59)
[2019-05-19] MEDS: VALSARTAN/SACUBITRIL 24MG/26MG 1 EA TAB PO SCH (17:59)
[2019-05-19] MEDS: CARVEDILOL 3.125 MG TAB PO SCH (18:00)
[2019-05-19] MEDS ORDERED: POTASSIUM CHLORIDE 10MEQ EA PO SCH (18:00)
[2019-05-20] VITALS (11 sets, daily range): BP systolic 129–146; BP diastolic 38–104
[2019-05-20] MEDS: CEFEPIME 1GM/NS 0.9% 50 ML 50 ML IV SCH ×3 (04:27→18:28)
[2019-05-20] MEDS: VANCOMYCIN 1GM/NS 250 ML 250 ML IV SCH (05:27)
[2019-05-20] MEDS: FAMOTIDINE 20 MG/2 ML VIAL IV SCH ×3 (06:01→21:46)
[2019-05-20] MEDS: FUROSEMIDE INJ 10 MG/ML 2 ML VIAL IV SCH ×2 (06:01→18:28)
[2019-05-20 06:28] LABS: BASOPHILS # (AUTO) 0.1 (0.0-0.1); BASOPHILS % 0.7 % (0.0-1.0); EOSINOPHILS # (AUTO) 0.3 (0.0-0.4); EOSINOPHILS % 2.3 % (0.0-6.0); HEMATOCRIT 26.9 % (34.2-44.1); HEMOGLOBIN 8.6 g/dL (12.0-16.0); LYMPHOCYTES # (AUTO) 1.7 (1.0-3.2); LYMPHOCYTES % 12.8 % (18.0-39.1); MEAN CORPUSCULAR HEMOGLOBIN 29.1 pg (28-32); MEAN CORPUSCULAR VOLUME 90.9 fL (81-99); MONOCYTES # (AUTO) 0.6 (0.2-0.8); MONOCYTES % 4.4 % (4.4-11.3); NEUTROPHILS # (AUTO) 10.5 (2.1-6.9); NEUTROPHILS % 77.5 % (38.7-80.0); PLATELET COUNT 227 x10e3/uL (140-360); RED BLOOD COUNT 2.96 x10e6/uL (3.6-5.1); RED CELL DISTRIBUTION WIDTH 14.9 % (11.7-14.4)
[2019-05-20 06:45] LABS: ALBUMIN 2.8 g/dL (3.5-5.0); ALBUMIN/GLOBULIN RATIO 0.8 (0.8-2.0); ANION GAP 16.1 mmol/L (8-16); CALCIUM 9.1 mg/dL (8.4-10.2); CREATININE, SERUM 1.27 mg/dL (0.57-1.11); MAGNESIUM 1.7 MG/DL (1.3-2.1); POTASSIUM 4.1 mmol/L (3.5-5.1)
--- NOTE | 2019-05-20 07:19 | Diagnostic Imaging Report ---
EXAMINATION: CHEST SINGLE (PORTABLE) INDICATION: CHF. COMPARISON: Chest radiograph 05/19/19. FINDINGS: TUBES and LINES: Left-sided pacemaker in unchanged position. LUNGS: Lungs are moderately inflated. There are increasing bilateral perihilar and interstitial opacities. Increasing left lower lung opacity and slightly decreased right lower lung opacity. PLEURA: Small bilateral pleural effusions. No pneumothorax. HEART AND MEDIASTINUM: Cardiac size is mildly enlarged. There are atherosclerotic calcifications within the aorta. Status post valve replacement. BONES AND SOFT TISSUES: No acute osseous lesion. Soft tissues are unremarkable. UPPER ABDOMEN: No free air under the diaphragm. IMPRESSION: Increasing pulmonary edema. Persistent small bilateral pleural effusions. Opacities in lower lungs may represent atelectasis, although pneumonia is possible in the appropriate clinical setting. Signed by: Dr. Megan Haider MD on 05/20/2019 7:16 AM
[2019-05-20] MEDS: INSULIN LISPRO 100 UNIT/1 ML 3ML VIAL SQ SCH ×4 (07:30→20:26)
[2019-05-20] MEDS: POLYETHYLENE GLYCOL 3350 17 GM PACK PO SCH ×3 (09:00→17:00)
[2019-05-20] MEDS: VALSARTAN/SACUBITRIL 24MG/26MG 1 EA TAB PO SCH ×3 (09:00→17:00)
[2019-05-20] MEDS: SPIRONOLACTONE 25 MG TAB PO SCH ×3 (09:00→17:00)
[2019-05-20] MEDS: CARVEDILOL 3.125 MG TAB PO SCH ×3 (09:00→17:00)
--- NOTE | 2019-05-20 09:58 | Progress Note ---
DATE: 05/20/2019 SUBJECTIVE: The patient is an 88-year-old female who came in with acute respiratory failure, pneumonia, congestive heart failure, and pleural effusion. Currently, the patient is doing little better, but according to the nurses, she is very lethargic for the last 24 hours. No chest pain noted. No shortness of breath. Little confused. OBJECTIVE: VITAL SIGNS: Temperature is 96.1, pulse of 81, respirations of 24, blood pressure is 129/104, and pulse oximetry of 91%. HEENT: Normocephalic and atraumatic. Currently, she is on nasal cannula. BiPAP throughout the night. CVS: S1 and S2 normal. Regular rate and rhythm. ABDOMEN: Nontender and nondistended. LUNGS: Positive for crackles in lower bases. EXTREMITIES: No clubbing. No cyanosis. Trace edema. LABORATORY DATA: White count has come down to 13,000, hemoglobin of 8.6, hematocrit 26.9, and platelet count is 227. Chemistries; sodium of 142, potassium 4.1, corrected BUN 29, and creatinine of 1.27. Urine cultures are no growth and blood cultures no growth. ASSESSMENT: 1. Acute respiratory failure. 2. Pneumonia. 3. Acute congestive heart failure, acute on chronic. 4. Acute kidney injury. 5. Anemia of chronic disease. 6. Hyperlipidemia and debility. PLAN: The plan would be to continue with current antibiotic regimen. Continue on GI prophylaxis and DVT prophylaxis. The patient will need physical therapy, occupational therapy, and possible SNF consult. Further recommendation per clinical course. The patient's laboratory values will be monitored. Additional diagnosis includes leukocytosis and history of diabetes mellitus. MD ANABEL Tucker/MODL /[id number]
--- NOTE | 2019-05-20 11:25 | NUR ---
PT HAS BEEN RESTLESS THIS MORNING. BEING NONVERBAL ASIDE FROM MOANING. SPIT OUT PO MEDS. EXHIBITING SAME BEHAVIOR WITH FAMILY. DT CHANGE IN AMS, ABG AND CT ORDERED.
[2019-05-20 11:47] LABS: EOSINOPHILS % (MANUAL) 1 % (0-7); LYMPHOCYTES % (MANUAL) 6 % (19-48); MONOCYTES % (MANUAL) 2 % (3.4-9.0); MYELOCYTES % (MANUAL) 1 % (0-0); NEUTROPHILS % (MANUAL) 90 % (40-74)
[2019-05-20 11:48] LABS: PLATELET ESTIMATE ADEQUATE; PLATELET MORPHOLOGY COMMENT NORMAL; RBC MORPHOLOGY COMMENT NORMAL
[2019-05-20 12:09] LABS: ABG HCO3 24 mmol/L (23-28); ABG PCO2 33 mmHg (41-51); ABG PH 7.46 (7.31-7.41); ABG PO2 66 mmHg (80-105)
--- NOTE | 2019-05-20 13:45 | Progress Note ---
DATE: 05/20/2019 Cardiology Progress Note SUBJECTIVE: Ms. Waldrop remains more disoriented and is refusing medications. PHYSICAL EXAMINATION: VITAL SIGNS: Afebrile, heart rate 101, and blood pressure 146/72. CARDIOVASCULAR: Regular rhythm, tachycardic systolic murmur. LUNGS: Clear to auscultation bilaterally. LABORATORY STUDIES: Telemetry shows sinus tachycardia. Hemoglobin 8.6. Creatinine is 1.27. CT of the brain is pending. Chest x-ray shows pulmonary edema. ASSESSMENT: 1. Gbgjx-rb-ajyafpp systolic heart failure. 2. Coronary artery disease. RECOMMENDATIONS: Beta-connor and Entresto were started as well as spironolactone, however, the patient is refusing p.o. medications. We will continue to monitor on telemetry and re-introduce oral CHF medications as clinical course progresses. MD CONCHA Davis/HEIDY /[id number]
--- NOTE | 2019-05-20 14:10 | NUR ---
progress note [id number] TIME 40 MIN
--- NOTE | 2019-05-20 14:12 | NUR ---
Pulmonary Medicine DATE 05/20/2019 SUBJECTIVE: AMS today probably slept ok last night possible abd pain, difficult evaluation limited ocular exam didnt allow her to be fed, she didnt allow meds to be given REVIEW OF SYSTEMS: no headaches, no rash OBJECTIVE: VITAL SIGNS: vital signs noted and reviewed per the chart record. GENERAL: confused, occasional phrases. changed. HEENT: Normocephalic, atraumatic. NECK: Supple. Throat midline. LUNGS: Bilateral air entry decreased at bases, few crackles. CARDIOVASCULAR: S1, S2. No murmurs, rubs, or gallops. ABDOMEN: Soft, nontender. EXTREMITIES: No clubbing, no cyanosis. trace edema. INTEGUMENT: No rash. No purpura. LABORATORY DATA: wbc 14, hct 27, plt 227 k 4.1. cr 1.27, hco3 26 IMPRESSION: 1. Abnormal chest radiography, clinically pulmonary edema suggested. 2. Abnormal chest radiography, bilateral moderate-sized pleural effusions. --s/p right thoracentesis c/w transudate 3. Treat for pneumonia hospital acquired prior to admission. 4. Systolic acute on chronic CHF, LVEF 40%. 5. hx MVR 6. 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 CAD? 7. Hx AICD 8. PVD, status post CEA. 9. Diabetes. 10. Hypertension. 11. Hyperlipidemia. 12. Anemia. 13. worsening encephalopathy, toxic metabolic suspected 14. abdominal pain, possible PLAN continue antibiotics for hospital-acquired organisms diuresis thoracentesis done, follow fluid analysis. If SOB persists, will consider left thoracentesis follow cultures cardiology evaluating/optimizing cardiac structure and function check ct brain check ct abd/pelvis Thank you very much, Dr. Cerna for allowing me a chance to participate in the care of Ms. Waldrop. Please call for any questions.
--- NOTE | 2019-05-20 14:17 | Diagnostic Imaging Report ---
EXAMINATION: Head CT HISTORY: Alteration of consciousness, pneumonia, hypoxia COMPARISON: None. TECHNIQUE: Multidetector axial images were obtained without contrast from the foramen magnum to the vertex . The images were reconstructed using brain and bone algorithms. Thin section brain images were reformatted into coronal and sagittal planes. Image quality: Motion/streaking artifact significantly limits the evaluation of the skull base and posterior cranial fossa. Dose modulation, iterative reconstruction, and/or weight based adjustment of the mA/kV was utilized to reduce the radiation dose to as low as reasonably achievable. FINDINGS: Parenchyma: 1. Few scattered and mildly confluent periventricular white matter hypodensities, most likely nonspecific chronic microvascular ischemic changes 2. No mass or hemorrhage. No CT evidence of acute territorial vascular insult. Extra-axial spaces:No abnormal density. No extra-axial fluid collections Brain volume: Normal for age. Ventricles: No hydrocephalus or displacement. Arteries: No density suggestive of thrombus. Dural sinuses: No abnormal density. Extra-axial spaces: No abnormal density. Foramen magnum: No mass, Chiari malformation, or basilar invagination. Sella: No obvious mass. Paranasal/mastoid sinuses: Imaged portions unremarkable. Skull/Scalp: No lytic or blastic lesions. No fractures. IMPRESSION: 1. Suboptimal study due to patient's motion, grossly no mass, acute intracranial hemorrhage, hydrocephalus, midline shift or herniation. 2. Mild chronic microvascular ischemic changes. Signed by: Dr. Melisa Casiano M.D. on 05/20/2019 2:14 PM
--- NOTE | 2019-05-20 14:44 | Diagnostic Imaging Report ---
EXAM: CT Abdomen and Pelvis WITHOUT contrast INDICATION: Abdominal pain, delirium. COMPARISON: Abdominal ultrasound 05/17/2019. TECHNIQUE: Abdomen and pelvis were scanned utilizing a multidetector helical scanner from the lung base to the pubic symphysis without administration of IV contrast. Absence of intravenous contrast decreases sensitivity for detection of focal lesions and vascular pathology. Coronal and sagittal reformations were obtained. Routine protocol was performed. IV CONTRAST: None. ORAL CONTRAST: None. RADIATION DOSE: Total DLP: 306 mGy*cm Estimated effective dose: (DLP x 0.015 x size factor) mSv COMPLICATIONS: None FINDINGS: LINES and TUBES: None. LOWER THORAX: Small bilateral pleural effusions, left greater than right with associated patchy dependent opacities. Mild cardiomegaly. Partially seen pacemaker leads. Mitral annular calcifications. Coronary atherosclerosis. HEPATOBILIARY No focal hepatic lesions. There is mild extrahepatic biliary dilation likely post cholecystectomy reservoir effect. GALLBLADDER: Status post cholecystectomy. SPLEEN: No splenomegaly. PANCREAS: Atrophic in appearance. No definite mass or biliary ductal dilatation, although evaluation is limited. ADRENALS: No adrenal nodules KIDNEYS/URETERS: No evidence of hydronephrosis, mass, or stone. GI TRACT: No abnormal distention, wall thickening, or evidence of bowel obstruction. Appendix is normal. PELVIC ORGANS/BLADDER: Distended bladder which contains a small amount of air. Status post hysterectomy. LYMPH NODES: No lymphadenopathy. VESSELS: Extensive atherosclerotic calcifications of the abdominal aorta and branch vessels. PERITONEUM / RETROPERITONEUM: No free air or fluid. BONES: Diffuse osteopenia. Age indeterminate moderate compression deformity of the T12 vertebral body. No bony retropulsion. SOFT TISSUES: Diffuse atrophy of the musculature. IMPRESSION: No acute CT abnormality in the abdomen or pelvis. Small bilateral pleural effusions with associated dependent opacities, likely atelectasis. Superimposed pneumonia is possible in the appropriate clinical setting. Diffuse osteopenia. Age-indeterminate moderate compression deformity of the T12 vertebral body. Distended bladder which contains a small amount of air, which may be iatrogenic. Signed by: Dr. Megan Haider MD on 05/20/2019 2:40 PM
--- NOTE | 2019-05-20 15:40 | NUR ---
Visit made by the Spiritual Care Department Pastoral Visitor, Phillip Olivera. PV provided pastoral presence, hospitality, and supportive listening. Pastoral Visitor informed pt/family of the scope of [facility] and availability. JIAN SMITH [employer] Spiritual Care Department O: [phone] Pager: [phone] ([phone] calling from)
[2019-05-20] MEDS: ENOXAPARIN 30 MG/0.3 ML SYR SC SCH (18:28)
[2019-05-20] MEDS ORDERED: LORAZEPAM INJ 2 MG/ML VIAL IV NR (18:45)
--- NOTE | 2019-05-20 19:13 | NUR ---
PT CONTINUES TO SHOW AMS, ALL LABS AND CT RESULTS CALLED INTO MD. PT NOT EATING OR DRINKING, UNABLE TO GIVE PO MEDS. MD AWARE.
[2019-05-20 19:46] LABS: CLARITY,URINE CLEAR (CLEAR); COLOR,URINE YELLOW (YELLOW)
[2019-05-20 19:48] LABS: BILIRUBIN,URINE NEGATIVE (NEGATIVE); KETONES,URINE TRACE (NEGATIVE); LEUKOCYTE ESTERASE ,URINE NEGATIVE (NEGATIVE); NITRITE,URINE NEGATIVE (NEGATIVE); PROTEIN,URINE DIPSTICK 1+ (NEGATIVE); URINE UROBILINOGEN 0.2 mg/dL (0.2 - 1)
[2019-05-20 19:51] LABS: BACTERIA,URINE RARE /HPF; EPITHELIAL CELLS,URINE FEW /LPF
[2019-05-21] VITALS (7 sets, daily range): BP systolic 103–148; BP diastolic 46–78
[2019-05-21] MEDS: LORAZEPAM INJ 2 MG/ML VIAL IV PRN ×2 (03:00→23:29)
--- NOTE | 2019-05-21 03:35 | Progress Note ---
DATE: 05/19/2019 SUBJECTIVE: Ms. Waldrop is lying on bed, she is out of ICU, doing a little better. She is still on BiPAP on and off, hypoxemic. The patient is feeling better. Family at the bedside, very concerning about her condition. REVIEW OF SYSTEMS: Weak, shortness of breath easily, minimum cough. There is no fever. Otherwise, all negative. PHYSICAL EXAMINATION: GENERAL: She is currently alert, oriented, does not seem in acute distress. VITAL SIGNS: Stable, currently afebrile. HEENT: Normocephalic, not icteric. NECK: Supple. CHEST: Few crackles at the bases. HEART: S1, S2. No S3, S4, or murmur. ABDOMEN: Soft bowel sounds present. No tenderness. No hepatosplenomegaly. EXTREMITIES: Trace edema. LABORATORY DATA: White count 16,000, hemoglobin 8.2, her platelet 223. Her sodium 142, potassium 3, BUN 32, creatinine 1.23, glucose is 250. Thoracocentesis showed WBC of 110, RBC 1045, glucose 157. Cultures remain negative. IMAGING: Her echocardiogram reviewed. IMPRESSION: 1. Acute shortness of breath, getting progressively worse, on and off for the last few months. I think the underlying condition is congestive heart failure with probably superimposed healthcare-associated pneumonia. 2. Coronary artery disease, status post CABG. 3. Atherosclerosis status post carotid endarterectomy. 4. Chronic congestive heart failure, status post automatic implantable cardioverter-defibrillator. 5. Acute on chronic kidney injury underlying chronic kidney disease. 6. Hypertension. 7. Diabetes. 8. Anemia. 9. Debility. I would recommend to finish 8 days of antibiotic. She is currently on vancomycin and cefepime. Obtain vancomycin trough. Discussed with the family. MD GÓMEZ Sears/HEIDY /[id number]
[2019-05-21] MEDS ORDERED: SODIUM CHLORIDE 0.9% 250ML 250 ML ONE (04:05)
[2019-05-21] MEDS: CEFEPIME 1GM/NS 0.9% 50 ML 50 ML IV SCH (04:15)
[2019-05-21 05:36] LABS: BASOPHILS # (AUTO) 0.1 (0.0-0.1); BASOPHILS % 0.6 % (0.0-1.0); EOSINOPHILS # (AUTO) 0.1 (0.0-0.4); EOSINOPHILS % 0.8 % (0.0-6.0); HEMATOCRIT 28.1 % (34.2-44.1); HEMOGLOBIN 9.1 g/dL (12.0-16.0); LYMPHOCYTES # (AUTO) 2.2 (1.0-3.2); LYMPHOCYTES % 12.7 % (18.0-39.1); MEAN CORPUSCULAR HEMOGLOBIN 29.4 pg (28-32); MEAN CORPUSCULAR HGB CONC 32.4 g/dL (31-35); MEAN CORPUSCULAR VOLUME 90.6 fL (81-99); MONOCYTES # (AUTO) 0.8 (0.2-0.8); MONOCYTES % 4.4 % (4.4-11.3); NEUTROPHILS # (AUTO) 13.7 (2.1-6.9); NEUTROPHILS % 79.2 % (38.7-80.0); PLATELET COUNT 253 x10e3/uL (140-360); RED CELL DISTRIBUTION WIDTH 15.2 % (11.7-14.4)
[2019-05-21] MEDS: FAMOTIDINE 20 MG/2 ML VIAL IV SCH ×3 (05:56→22:14)
[2019-05-21] MEDS: FUROSEMIDE INJ 10 MG/ML 2 ML VIAL IV SCH ×2 (05:56→17:45)
[2019-05-21 06:00] LABS: ANION GAP 22.9 mmol/L (8-16); CALCIUM 9.3 mg/dL (8.4-10.2); CREATININE, SERUM 1.44 mg/dL (0.57-1.11); POTASSIUM 3.9 mmol/L (3.5-5.1)
--- NOTE | 2019-05-21 07:26 | Progress Note ---
DATE: 05/21/2019 SUBJECTIVE: The patient is an 88-year-old female, who comes in with acute pneumonia, bilateral pleural effusions, congestive heart failure. The patient is currently on cefepime and vancomycin has been discontinued. The patient is getting carvedilol, Lovenox, insulin, and Aldactone, and the patient is also on Entresto. Currently, the patient is very confused, is pulling out on her lines, was given 0.25 mg of alprazolam yesterday, but the patient continues to do the same. The patient is otherwise not eating. No chest pain reported and no shortness of breath reported. OBJECTIVE: VITAL SIGNS: Temperature is 97.3, respirations of 19, blood pressure is 148/75, pulse oximeter of 92%. She is supposed to be on BiPAP, currently on nasal cannula at 2 L. HEENT: Normocephalic, atraumatic. GENERAL: Confused. CVS: S1 and S2 regular. ABDOMEN: Nontender, nondistended. EXTREMITIES: No clubbing, no cyanosis, no edema. ASSESSMENT: An 88-year-old female with: 1. Coronary artery disease. 2. History of congestive heart failure. 3. History of coronary artery bypass grafting. 4. Atherosclerosis. 5. Hypertension. 6. Diabetes. 7. Anemia. 8. Debility. 9. Leukocytosis. 10. Chronic kidney injury. The patient's white count has gone up and also creatinine has gone up at this time. We will continue to monitor the patient. We will give her IV Ativan 0.5 mg right now. For her encephalopathy, we will continue monitoring the patient. Further recommendation per clinical course. Continue checking labs and may need change in antibiotics. Chucho Cerna MD ASJ/MODL /[id number]
[2019-05-21] MEDS: INSULIN LISPRO 100 UNIT/1 ML 3ML VIAL SQ SCH ×4 (07:30→20:52)
[2019-05-21] MEDS ORDERED: LORAZEPAM INJ 2 MG/ML VIAL IV ONE (07:30)
[2019-05-21] MEDS: VALSARTAN/SACUBITRIL 24MG/26MG 1 EA TAB PO SCH ×2 (09:00→21:00)
[2019-05-21] MEDS: CARVEDILOL 3.125 MG TAB PO SCH ×2 (09:00→21:00)
[2019-05-21] MEDS: SPIRONOLACTONE 25 MG TAB PO SCH ×2 (09:00→21:00)
[2019-05-21] MEDS: POLYETHYLENE GLYCOL 3350 17 GM PACK PO SCH ×2 (09:00→21:00)
--- NOTE | 2019-05-21 11:26 | NUR ---
ROUNDS WITH DR PASCUAL TODAY DR PASCUAL CALLED DR SNYDER AND RECOMMENDS LTAC EVAL DR SNYDER AGREEABLE
--- NOTE | 2019-05-21 11:28 | NUR ---
PER DR PASCUAL AND DR SNYDER'S CONVERSATIOIN TODAY PT HAS DECLINED BOTH PHYSICALLY AND MENTALLY IN PAST 48 HRS ECEPHALOPATHIC "HAVE TO MAKE SURE PT ISN'T SEPTIC" PER DR PASCUAL BEFORE PT SENT TO LT[facility] APPROX 2 DAYS PRIOR TO TRANSFER PT'S DTR AT BEDSIDE AWARE OF PLAN AND AGREEABLE CM TO FOLLOW
--- NOTE | 2019-05-21 12:03 | Progress Note ---
DATE: 05/21/2019 SUBJECTIVE: The patient was originally seen on May 20. The patient, who is a very pleasant, well known to me. She comes to the hospital with altered mental status and shortness of breath. She was little bit yesterday, but today on the , when I made the round, she was lethargic. Apparently, she received some pain medicine. Discussed with the patient and family at length. Discussed with the Critical Care. PHYSICAL EXAMINATION: GENERAL: She was lethargic. VITAL SIGNS: Stable, afebrile. HEENT: Normocephalic. NECK: Supple. CHEST: Few rhonchi bilateral. COR: S1 and S2. No S3, S4, or murmur. ABDOMEN: Soft. Bowel sounds present. No tenderness. EXTREMITIES: No edema. IMPRESSION: 1. Altered mental status. It could be metabolic encephalopathy, may be drug-related. Discontinue all sedative. Discussed with the patient's family. If she gets progressively worse, needs to be intubated, they were okay to do that. 2. Acute shortness of breath. I think it is acute congestive heart failure on chronic. Clinically, seems to be stable for now. 3. Community-acquired pneumonia, probably healthcare-related pneumonia since she was in the hospital, clinically stable. I am concerned about her altered mental status at present time. 4. Discussed with Pulmonary. 5. Coronary artery disease. 6. Chronic kidney disease with acute kidney injury. 7. Debility. I am going to hold off antibiotic for the time being. Discontinue vancomycin. Continue with cefepime. We will finish 5 days. Close observation. Further recommendations to follow. MD GÓMEZ Sears/HEIDY /[id number]
--- NOTE | 2019-05-21 16:30 | Progress Note ---
DATE: 05/21/2019 SUBJECTIVE: Ms. Waldrop remains confused. Little bit allergic. Discussed with the family. Discussed with Dr. Cerna. Discussed with the case management. PHYSICAL EXAMINATION: GENERAL: She is alert, but does not follows simple command, confused. VITAL SIGNS: Afebrile. HEENT: Normocephalic. NECK: Supple. CHEST: Few crackles at the bases. COR: S1 and S2. No S3, S4, or murmur. ABDOMEN: Soft. Bowel sounds present. No tenderness. EXTREMITIES: No edema. SKIN: No rash. IMPRESSION: 1. Shortness of breath, present on admission. 2. Jftxh-yi-bqodczx congestive heart failure. 3. Healthcare-associated pneumonia. 4. Altered mental status. 5. Metabolic encephalopathy. We will discontinue antibiotics. I am concerned that it could be the cause of it. CAT scan of abdomen and pelvis was done. Recheck CBC. Recheck chem panel. The patient would benefit from LTAC. Discussed with all attending. Discussed with medical team. Discussed with the patient's family. May need neuro evaluation. MD GÓMEZ Sears/MODL /[id number]
--- NOTE | 2019-05-21 17:36 | Progress Note ---
DATE: 05/21/2019 ADDENDUM: I noticed that her creatinine is going up. Discussed with the family. I am going to stop all her antibiotics since they were concerned about acute kidney injury. Also, her white count is went up today. There is no fever. We will order procalcitonin. Hold off all her sedatives. We will follow. MD GÓMEZ Sears/MODL /[id number]
--- NOTE | 2019-05-21 17:38 | NUR ---
Nutrition Intervention Note RD Recommendation(s) for Physician: -Recommend diabetic/low sodium diet -Ensure Enlive BID for added nutrition when appropriate -If pts mental status does not improve, consider nutrition support Plan of Care: RD following, monitoring for tolerance and adequacy Nutrition reason for involvement: Length of stay RD Assessment (05/21/19) Pt is an 88 year old female admitted with pneumonia, hypoxia, and sepsis. Pt currently has altered mental status; therefore, spoke to family members at beside. Family members reported pt has not had anything to eat since yesterday due to altered mental status. Per documentation, pt consumed 75% of meals on 05/19 and 25% of lunch on 05/17. Family member reported pt usually weighs 137 lbs. Pt currently has a wt of 140 lbs in chart. Family member also reports drinks Ensure at home. No N/V noted. Will continue to monitor. Principal Problems/Diagnoses: pneumonia, hypoxia, and sepsis PMH: pneumonia, CHF, diabetes, HTN, HLD, anemia, CABG, cholecystectomy, AICD placement I/O: 720/600 GI: last recorded BM 05/20 Skin: intact Labs: (05/21/19) BUN 33, Creat 1.44, Glu 215, BNP 1538 Meds: pepcid, lasix, lovenox, valsartan, spironolactone, insulin lispro, zofran Ht: 60 inches Wt: 140 lbs BMI: 27.3 kg/m2 IBW: 100 lbs Malnutrition Evaluation (05/21/19) The patient does not meet criteria for a specified degree of malnutrition at this time. Will re-evaluate at follow-up as appropriate. Nutrition Prescription (Diet Order): Cardiac Estimated Nutritional Needs: 6419-3467 calories/day (18-20 kcal/kg CBW) 64-95 g protein/day (1-1.5 g pro/kg CBW) Diet Adequacy: Not meeting calorie needs, Not meeting protein needs at this time Tolerance: Tolerance pending at this time due to AMS Diet Education Needs Assessment: Diet education not indicated at this time Nutrition Care Level: low Nutrition Diagnosis: Inadequate energy intake related to decreased ability to consume sufficient energy secondary to altered mental status as evidenced by pt eating < 50% of meals. Goal: Patient will meet 75-100% of estimated needs by follow up Progress: N/A Interventions: -sodium/carbohydrate modified diet, Commercial beverage, Recommended Modifications, Monitoring/Evaluation: -Total energy intake, Total protein intake, Modified diet, Liquid supplement, Weight change Signed: Madyson Anderson RD, LD
[2019-05-21] MEDS: ENOXAPARIN 30 MG/0.3 ML SYR SC SCH (17:45)
--- NOTE | 2019-05-21 19:00 | NUR ---
reports received, patient has been confused and not eating or drinking, as the patient's family member stated as well. she is in bed and constantly trying to get off bed and reaching out while half asleep. family member on bed side.
--- NOTE | 2019-05-21 19:02 | Progress Note ---
DATE: 05/21/2019 Cardiology Progress Note SUBJECTIVE: No major events overnight. OBJECTIVE: VITAL SIGNS: Temperature afebrile, pulse 94, respiratory rate 16, blood pressure 126/77, saturating 100% on nasal cannula. GENERAL: Elderly female, in no acute distress. CARDIOVASCULAR: Regular rate and rhythm. No murmurs, rubs, or gallops. LUNGS: Clear to auscultation anteriorly. ABDOMEN: Soft, nontender, and nondistended. NEURO AND PSYCH: Alert and oriented x2. INPATIENT MEDICATIONS: Reviewed. LABORATORY DATA: Reviewed. TELEMETRY DATA: Reviewed, shows normal sinus rhythm with occasional PVCs. ASSESSMENT/PLAN: 1. Acute hypoxic respiratory failure. 2. Suspected pneumonia. 3. Gxria-th-nzydhgl systolic heart failure exacerbation. 4. Coronary artery disease, status post coronary artery bypass surgery in the past. 5. Carotid stenosis, status post carotid endarterectomy in the past. 6. Status post ICD placement. 7. Chronic kidney disease. 8. Hypertension. 9. Hyperlipidemia. 10. Diabetes. 11. Anemia. RECOMMENDATIONS: Continue IV diuretic and other cardiovascular medications. Stable from cardiovascular standpoint with diuresis. Renal function tolerates. Treatment of pneumonia per primary team. We will continue to follow. Thank you for the consult. MD YOLANDA Navas/HEIDY /[id number]
--- NOTE | 2019-05-21 21:43 | NUR ---
Pulmonary Medicine DATE 05/21/2019 SUBJECTIVE: intermittent RA, intermittent 2 L/min oxygen no eating no sleep much, 1.5 hours last night? AMS still REVIEW OF SYSTEMS: AMS OBJECTIVE: VITAL SIGNS: vital signs noted and reviewed per the chart record. GENERAL: confused, ao x 1 HEENT: Normocephalic, atraumatic. NECK: Supple. Throat midline. LUNGS: Bilateral air entry decreased at bases, few crackles. CARDIOVASCULAR: S1, S2. No murmurs, rubs, or gallops. ABDOMEN: Soft, nontender. EXTREMITIES: No clubbing, no cyanosis. trace edema. INTEGUMENT: No rash. No purpura. LABORATORY DATA: wbc 17, hct 28, plt 253. k 3.9, bun 33, cr 1.44 IMPRESSION: 1. Abnormal chest radiography, clinically pulmonary edema 2. Abnormal chest radiography, bilateral moderate-sized pleural effusions. --s/p right thoracentesis c/w transudate 3. Treat for pneumonia hospital acquired prior to admission. 4. Systolic acute on chronic CHF, LVEF 40%. 5. hx MVR 6. 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 CAD? 7. Hx AICD 8. PVD, status post CEA. 9. Diabetes. 10. Hypertension. 11. Hyperlipidemia. 12. Anemia. 13. worsening encephalopathy, toxic metabolic suspected 14. abdominal pain, possible PLAN continue antibiotics for hospital-acquired organisms diuresis thoracentesis done, follow fluid analysis. If SOB persists, will consider left thoracentesis follow cultures cardiology evaluating/optimizing cardiac structure and function continue encephalopathy workup Thank you very much, Dr. Cerna for allowing me a chance to participate in the care of Ms. Waldrop. Please call for any questions.
--- NOTE | 2019-05-21 22:01 | NUR ---
IV to left arm was leaking, put a new line to right upper arm size 20 g.
--- NOTE | 2019-05-21 23:49 | NUR ---
patient just got Ativan PRN as family member requested; patient was cleaned in bed and linen changed. bed alarm is on, family members on bed side.
[2019-05-22] VITALS (8 sets, daily range): BP systolic 134–151; BP diastolic 62–74
[2019-05-22 05:25] LABS: BASOPHILS # (AUTO) 0.1 (0.0-0.1); BASOPHILS % 0.7 % (0.0-1.0); EOSINOPHILS # (AUTO) 0.2 (0.0-0.4); EOSINOPHILS % 1.3 % (0.0-6.0); HEMOGLOBIN 8.6 g/dL (12.0-16.0); LYMPHOCYTES # (AUTO) 1.9 (1.0-3.2); MEAN CORPUSCULAR HEMOGLOBIN 29.5 pg (28-32); MEAN CORPUSCULAR HGB CONC 31.9 g/dL (31-35); MEAN CORPUSCULAR VOLUME 92.5 fL (81-99); MONOCYTES # (AUTO) 0.8 (0.2-0.8); MONOCYTES % 5.7 % (4.4-11.3); NEUTROPHILS # (AUTO) 10.4 (2.1-6.9); PLATELET COUNT 254 x10e3/uL (140-360); RED BLOOD COUNT 2.92 x10e6/uL (3.6-5.1); RED CELL DISTRIBUTION WIDTH 15.7 % (11.7-14.4)
[2019-05-22] MEDS: FAMOTIDINE 20 MG/2 ML VIAL IV SCH ×3 (05:41→22:03)
[2019-05-22] MEDS: FUROSEMIDE INJ 10 MG/ML 2 ML VIAL IV SCH ×2 (05:41→17:51)
[2019-05-22 05:48] LABS: ALBUMIN 2.9 g/dL (3.5-5.0); ALBUMIN/GLOBULIN RATIO 0.9 (0.8-2.0); ANION GAP 21.3 mmol/L (8-16); CALCIUM 9.3 mg/dL (8.4-10.2); CREATININE, SERUM 1.6 mg/dL (0.57-1.11); POTASSIUM 3.3 mmol/L (3.5-5.1)
--- NOTE | 2019-05-22 07:35 | Progress Note ---
DATE: 05/22/2019 SUBJECTIVE: The patient is here for pneumonia, congestive heart failure, and pleural effusion. The patient is currently still very combative, altered mental status with some confusion. The patient's antibiotic was stopped yesterday in lieu of possible encephalopathy secondary to medications. The patient is currently sleeping. No chest pain. No shortness of breath. The patient is using all 4 extremities well combative. OBJECTIVE: VITAL SIGNS: Temperature 99.1, pulse of 99, respirations of 20, blood pressure is 151/73, and pulse oximetry of 99%. HEENT: Normocephalic, atraumatic. LUNGS: Decreased air entry into lung bases. Positive for crackles. ABDOMEN: Nontender, nondistended. EXTREMITIES: No clubbing, no cyanosis, no edema. LABORATORY STUDIES: White count down to 13,000, hemoglobin of 8.6, hematocrit of 27.0. The patient's chemistries show a BUN of 36 and creatinine of 1.60. Toxicology, vancomycin level was 29.5, which has been stopped. MICROBIOLOGY: Gram stain is no growth and blood cultures and urine cultures also negative. IMAGING STUDIES: Chest x-ray done today and ordered today. ASSESSMENT: 1. Renée Waldrop old with acute encephalopathy. 2. Acute hypoxic respiratory failure. 3. Suspected pneumonia. 4. Fpdse-dn-tkpuwez congestive heart failure. 5. Bgrlz-uj-uswwmbt kidney disease. 6. Hypertension. 7. Hyperlipidemia. 8. Anemia of chronic disease. PLAN: We will hold back on antibiotics at this time. Start the patient on D5 half NS at 50 mL an hour. Check a BMP again in the morning. Check labs. We will continue monitoring the patient. We will also give her Ativan 0.25 mg q.6 hours for sedation if needed. Further recommendation per clinical course. We will continue monitor the patient along with the consultants. MD ANABEL Tucker/INDIAL /[id number]
[2019-05-22] MEDS: INSULIN LISPRO 100 UNIT/1 ML 3ML VIAL SQ SCH ×4 (08:00→22:28)
[2019-05-22] MEDS: VALSARTAN/SACUBITRIL 24MG/26MG 1 EA TAB PO SCH ×2 (09:00→21:00)
[2019-05-22] MEDS: POLYETHYLENE GLYCOL 3350 17 GM PACK PO SCH ×2 (09:00→21:00)
[2019-05-22] MEDS: CARVEDILOL 3.125 MG TAB PO SCH ×2 (09:00→21:00)
[2019-05-22] MEDS: THIAMINE HCL 100 MG TAB PO SCH (09:00)
[2019-05-22] MEDS: SPIRONOLACTONE 25 MG TAB PO SCH ×2 (09:00→21:00)
[2019-05-22] MEDS: DEXTROSE 5%/0.45% SOD CHL 1,000 ML IV SCH ×2 (09:14→20:37)
--- NOTE | 2019-05-22 09:18 | Diagnostic Imaging Report ---
EXAM: CHEST SINGLE (PORTABLE) DATE: 05/22/2019 5:00 AM INDICATION: CHF COMPARISON: 05/20/2019 FINDINGS: Left-sided pacing device identified in stable position. Median sternotomy wires again noted. The trachea is midline. Again identified are diffuse increased interstitial opacities, similar to the prior examination. Stable small pleural effusions noted. There is no evidence for large focal consolidation or pneumothorax. The cardiomediastinal silhouette is stable in appearance. No acute osseous abnormality is identified. IMPRESSION: No significant interval change from 05/20/2019. Signed by: Dr. Alex You MD on 05/22/2019 9:14 AM
[2019-05-22] MEDS: LORAZEPAM INJ 2 MG/ML VIAL IV PRN (10:22)
--- NOTE | 2019-05-22 11:03 | NUR ---
YESTERDAY DISCUSSED DISCHARGE TO LTAC AFTER NEW SEPSIS RULED OUT TODAY ALL IV ABX HAVE BEEN DC'D FOR UVALDO AND POSSIBLE DRUG INDUCED ENCEPHALOPATHY D/W DR PASCUAL OVER PHONE HE WILL COME ASSESS PT TODAY AND ADD IV ABX IF APPROPRIATE CM TO FOLLOW
[2019-05-22] MEDS ORDERED: CEFTRIAXONE SOD 1 GM/NS 50 ML 50 ML IV SCH (12:00)
[2019-05-22] MEDS ORDERED: METRONIDAZOLE 500MG/NS 100ML 100 ML IV SCH (14:00)
--- NOTE | 2019-05-22 15:38 | NUR ---
PATIENT TOUCHING/GRABBING HER PRIVATE AREA, SUPRAPUBIC AREA DISTENDED. BLADDER SCANNED RESULTED IN >587 AT THIS TIME NOTIFIED RECEIVED ORDER FOR WALTER CATHETER. 16FR WALTER STARTED AT THIS TIME IMMEDIATELY GOT BACK 900CC.
[2019-05-22] MEDS: ENOXAPARIN 30 MG/0.3 ML SYR SC SCH (16:17)
--- NOTE | 2019-05-22 20:41 | NUR ---
Pulmonary Medicine DATE 05/22/2019 SUBJECTIVE: ivf at 75/hr 2 L/min oxygen slept 1/2 of night, still lots of AMS today not eating urinary retention noted REVIEW OF SYSTEMS: AMS OBJECTIVE: VITAL SIGNS: vital signs noted and reviewed per the chart record. GENERAL: confused, ao x 1 HEENT: Normocephalic, atraumatic. NECK: Supple. Throat midline. LUNGS: Bilateral air entry decreased at bases, few crackles. CARDIOVASCULAR: S1, S2. No murmurs, rubs, or gallops. ABDOMEN: Soft, nontender. EXTREMITIES: No clubbing, no cyanosis. trace edema. INTEGUMENT: No rash. No purpura. LABORATORY DATA: wbc 13.8, cr 1.6, k 3.3. IMPRESSION: 1. Abnormal chest radiography, clinically pulmonary edema 2. Abnormal chest radiography, bilateral moderate-sized pleural effusions. --s/p right thoracentesis c/w transudate 3. Treat for pneumonia hospital acquired prior to admission. 4. Systolic acute on chronic CHF, LVEF 40%. 5. hx MVR 6. 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 CAD? 7. Hx AICD 8. PVD, status post CEA. 9. Diabetes. 10. Hypertension. 11. Hyperlipidemia. 12. Anemia. 13. worsening encephalopathy, toxic metabolic suspected 14. urinary retention PLAN continue antibiotics for hospital-acquired organisms diuresis, salt restriction in general encourage diet ensure negative fluid balance if feasible. If SOB persists, will consider thoracentesis follow cultures cardiology evaluating/optimizing cardiac structure and function continue encephalopathy workup Thank you very much, Dr. Cerna for allowing me a chance to participate in the care of Ms. Waldrop. Please call for any questions.
[2019-05-22] MEDS: DEXTROSE 5% 1,000 ML IV SCH (20:45)
[2019-05-23] VITALS (9 sets, daily range): BP systolic 121–155; BP diastolic 57–79
[2019-05-23] MEDS: LORAZEPAM INJ 2 MG/ML VIAL IV PRN ×2 (00:33→22:34)
[2019-05-23] MEDS: METRONIDAZOLE 500MG/NS 100ML 100 ML IV SCH ×3 (00:33→16:53)
--- NOTE | 2019-05-23 00:34 | NUR ---
Went in room to hang metronidazole per orders. Dtr asked me what I was hanging and I told her it was anti biotics,she said that the Dr had stopped it. I told her that it was not discontinued. She said "yes it is". I told her that pt has more than one antibiotic and she said that 2 Drs had told her they are stopping antibiotics because pt is allergic and it would be restarted after one day. I tried to explain to her that this particular medication was just ordered today, but she did not want her mom to receive any antibiotic today, so I exited the room.
[2019-05-23] MEDS: FUROSEMIDE INJ 10 MG/ML 2 ML VIAL IV SCH ×2 (04:49→16:56)
[2019-05-23] MEDS: FAMOTIDINE 20 MG/2 ML VIAL IV SCH ×3 (04:50→21:23)
[2019-05-23 05:27] LABS: BASOPHILS # (AUTO) 0.1 (0.0-0.1); BASOPHILS % 0.5 % (0.0-1.0); EOSINOPHILS # (AUTO) 0.5 (0.0-0.4); EOSINOPHILS % 3.4 % (0.0-6.0); HEMATOCRIT 27.7 % (34.2-44.1); HEMOGLOBIN 8.7 g/dL (12.0-16.0); LYMPHOCYTES # (AUTO) 1.9 (1.0-3.2); LYMPHOCYTES % 14.4 % (18.0-39.1); MEAN CORPUSCULAR HEMOGLOBIN 29.1 pg (28-32); MEAN CORPUSCULAR HGB CONC 31.4 g/dL (31-35); MEAN CORPUSCULAR VOLUME 92.6 fL (81-99); MONOCYTES # (AUTO) 0.7 (0.2-0.8); MONOCYTES % 5.3 % (4.4-11.3); NEUTROPHILS # (AUTO) 9.8 (2.1-6.9); NEUTROPHILS % 74.2 % (38.7-80.0); PLATELET COUNT 243 x10e3/uL (140-360); RED BLOOD COUNT 2.99 x10e6/uL (3.6-5.1); RED CELL DISTRIBUTION WIDTH 16.6 % (11.7-14.4)
[2019-05-23 05:48] LABS: ANION GAP 14.6 mmol/L (8-16); CALCIUM 8.9 mg/dL (8.4-10.2); CREATININE, SERUM 1.37 mg/dL (0.57-1.11)
[2019-05-23 05:51] LABS: POTASSIUM 2.6 mmol/L (3.5-5.1)
[2019-05-23] MEDS ORDERED: POTASSIUM CHLORIDE 20MEQ/100ML 200 ML IV ONE ×3 (06:30→13:00)
[2019-05-23] MEDS: INSULIN LISPRO 100 UNIT/1 ML 3ML VIAL SQ SCH ×4 (07:30→21:00)
--- NOTE | 2019-05-23 08:04 | Progress Note ---
DATE: 05/23/2019 SUBJECTIVE: The patient is an 88-year-old female, who comes in with pneumonia and congestive heart failure. The patient has acute onset of encephalopathy, still confused, but better than yesterday. MEDICATIONS: She is on are carvedilol, Lovenox, famotidine, lorazepam. Flagyl and Rocephin have been started. Aldactone and losartan on board too. OBJECTIVE: VITAL SIGNS: Temperature is 97.7, pulse of 106, blood pressure is 155/79, pulse oximetry of 98% on 2 L of oxygen. HEENT: Normocephalic, atraumatic. The patient is confused. CVS: S1 and S2 normal. Regular rate and rhythm. ABDOMEN: Nontender and nondistended. LUNGS: Decreased air entry into lung bases. The patient has crackles in lower bases. EXTREMITIES: No clubbing. No cyanosis. Trace edema. LABORATORY VALUES: White count of 13,000, stable; hemoglobin of 8.7; hematocrit of 27.7. Chemistry shows sodium of 144, potassium of 2.6, BUN of 26, creatinine of 1.37. Glucoses have been running 115 to 180. IMAGING STUDIES: Chest x-ray from yesterday shows no significant interval changes. Cardiomediastinal silhouette is stable in appearance. No acute osseous abnormalities. No evidence of large consolidation or pneumothorax. Small stable bilateral pleural effusions. ASSESSMENT: Ms. Waldrop is an 88-year-old with: 1. Acute encephalopathy. 2. Congestive heart failure, acute on chronic, systolic. 3. Suspected pneumonia. 4. Acute hypoxic respiratory failure. 5. Hypertension. 6. Hyperlipidemia. 7. Anemia of chronic disease. 8. Epori-qi-nyxhmak kidney injury. PLAN: Replace potassium. Start back on D5 half NS. Continue monitoring her mental status. Ativan 2 q.6 hours. Further recommendation per clinical course. We will discuss with ID on ongoing antibiotic treatments. Chucho Cerna MD ASJ/MODL /[id number]
[2019-05-23] MEDS: CARVEDILOL 3.125 MG TAB PO SCH ×2 (08:19→21:00)
[2019-05-23] MEDS: POLYETHYLENE GLYCOL 3350 17 GM PACK PO SCH ×2 (08:19→21:00)
[2019-05-23] MEDS: THIAMINE HCL 100 MG TAB PO SCH (08:19)
[2019-05-23] MEDS: SPIRONOLACTONE 25 MG TAB PO SCH ×2 (08:19→21:00)
[2019-05-23] MEDS: VALSARTAN/SACUBITRIL 24MG/26MG 1 EA TAB PO SCH ×2 (08:19→21:00)
--- NOTE | 2019-05-23 10:53 | Diagnostic Imaging Report ---
Chest, 1 view, 05/23/2019. History: CHF, pneumonia. Comparison: 05/22/2019. Findings: The cardiomediastinal silhouette and pulmonary vasculature are prominent with diffuse hazy bilateral opacities which also obscure both hemidiaphragms, without change. Left subclavian dual-lead pacer and median sternotomy wires are unchanged in appearance. There are no acute osseous or soft tissue abnormalities. Impression: No significant change in diffuse bilateral pulmonary opacities consistent with CHF. Signed by: Jung Flores on 05/23/2019 10:50 AM
[2019-05-23] MEDS ORDERED: SODIUM CHLORIDE 0.9% 250ML 250 ML ONE (10:54)
[2019-05-23] MEDS: CEFTRIAXONE SOD 1 GM/NS 50 ML 50 ML IV SCH (12:00)
--- NOTE | 2019-05-23 12:49 | NUR ---
Pulmonary Medicine DATE 05/23/2019 SUBJECTIVE: slept well not eating 2 L/min oxygen minimally better mentation, still very altered ivf 50/hr REVIEW OF SYSTEMS: AMS OBJECTIVE: VITAL SIGNS: vital signs noted and reviewed per the chart record. GENERAL: confused, moves all 4 extremities HEENT: Normocephalic, atraumatic. NECK: Supple. Throat midline. LUNGS: Bilateral air entry decreased at bases, few crackles. CARDIOVASCULAR: S1, S2. No murmurs, rubs, or gallops. ABDOMEN: Soft, nontender. EXTREMITIES: No clubbing, no cyanosis. trace edema. INTEGUMENT: No rash. No purpura. LABORATORY DATA: k 2.6, cr 1.37. 13 wbc, hct 28, plt 243 IMPRESSION: 1. Abnormal chest radiography, clinically pulmonary edema 2. Abnormal chest radiography, bilateral moderate-sized pleural effusions. --s/p right thoracentesis c/w transudate 3. Treat for pneumonia, hospital acquired prior to admission. 4. Systolic acute on chronic CHF, LVEF 40%. 5. hx MVR 6. 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 CAD? 7. Hx AICD 8. PVD, s/p CEA. 9. Diabetes. 10. Hypertension. 11. Hyperlipidemia. 12. Anemia. 13. worsening encephalopathy, toxic metabolic suspected 14. urinary retention PLAN continue antibiotics for hospital-acquired organisms diuresis, salt restriction in general encourage diet ensure negative fluid balance if feasible. If SOB persists, will consider thoracentesis follow cultures cardiology evaluating/optimizing cardiac structure and function continue encephalopathy workup Thank you very much, Dr. Cerna for allowing me a chance to participate in the care of Ms. Waldrop. Please call for any questions.
--- NOTE | 2019-05-23 12:51 | NUR ---
CALL PLACED TO [place] , HARP REPAIRER FOR DR PASCUAL TO INQUIRE WHEN IV ABX CAN BE RESTARTED LAST ABX PER AUG WAS CEFEPIME 05/21 AT 4PM AWAIT CALL BACK WHEN IV ABX ARE STARTED BACK WILL GET LTAC EVAL
[2019-05-23] MEDS: DEXTROSE 5% 1,000 ML IV SCH (15:18)
[2019-05-23] MEDS: ENOXAPARIN 30 MG/0.3 ML SYR SC SCH (16:56)
--- NOTE | 2019-05-23 18:43 | Progress Note ---
DATE: 05/23/2019 SUBJECTIVE: Ms. Waldrop seem to be a little more alert today. No new problems. LABORATORY DATA: Reviewed. White count is 13.16 and hemoglobin 8.7. Sodium 144 and potassium 2.6. A chest x-ray, which was done today showed diffuse bilateral pulmonary opacities consistent with CHF. PHYSICAL EXAMINATION: GENERAL: She is not totally alert, but better. VITAL SIGNS: Stable, afebrile. HEENT: Not icteric. NECK: Supple. CHEST: Few crackles bilateral. COR: S1 and S2. No S3, S4, or murmur. ABDOMEN: Soft. NEURO: Remains lethargic. IMPRESSION: 1. Concerned about aspiration pneumonia. We will start Rocephin and Flagyl. 2. Debility and weakness, very slow progress. 3. Encephalopathy. 4. Congestive heart failure, still quite ill. 5. Hypokalemia. 6. Chronic kidney disease. 7. Diabetes mellitus. I think the patient would benefit from going to an LTAC. We will follow with you. Continue Rocephin and Flagyl as ordered. The patient at risk for recurrent aspiration. MD GÓMEZ Sears/MODL /[id number]
[2019-05-24] VITALS (8 sets, daily range): BP systolic 118–143; BP diastolic 61–77
[2019-05-24] MEDS: METRONIDAZOLE 500MG/NS 100ML 100 ML IV SCH ×3 (00:22→17:27)
[2019-05-24] MEDS: DEXTROSE 5% 1,000 ML IV SCH (04:43)
[2019-05-24] MEDS: LORAZEPAM INJ 2 MG/ML VIAL IV PRN (04:43)
[2019-05-24 05:24] LABS: BASOPHILS # (AUTO) 0.1 (0.0-0.1); BASOPHILS % 0.6 % (0.0-1.0); EOSINOPHILS # (AUTO) 0.6 (0.0-0.4); EOSINOPHILS % 3.9 % (0.0-6.0); HEMATOCRIT 30.9 % (34.2-44.1); HEMOGLOBIN 9.7 g/dL (12.0-16.0); MEAN CORPUSCULAR HEMOGLOBIN 29.4 pg (28-32); MEAN CORPUSCULAR HGB CONC 31.4 g/dL (31-35); MEAN CORPUSCULAR VOLUME 93.6 fL (81-99); MONOCYTES # (AUTO) 0.7 (0.2-0.8); MONOCYTES % 4.8 % (4.4-11.3); NEUTROPHILS # (AUTO) 10.4 (2.1-6.9); NEUTROPHILS % 74.2 % (38.7-80.0); PLATELET COUNT 254 x10e3/uL (140-360); RED CELL DISTRIBUTION WIDTH 17.7 % (11.7-14.4)
[2019-05-24 05:41] LABS: ANION GAP 15.9 mmol/L (8-16); CALCIUM 8.9 mg/dL (8.4-10.2); CREATININE, SERUM 1.34 mg/dL (0.57-1.11); POTASSIUM 3.9 mmol/L (3.5-5.1)
--- NOTE | 2019-05-24 06:56 | NUR ---
Dr. Cerna stated it was OK to resume Rochephin and Flagyl per Dr. Brown's orders. Family notified by Dr. Cerna.
[2019-05-24] MEDS: FUROSEMIDE INJ 10 MG/ML 2 ML VIAL IV SCH ×2 (06:58→17:27)
[2019-05-24] MEDS: FAMOTIDINE 20 MG/2 ML VIAL IV SCH ×3 (06:58→22:03)
[2019-05-24] MEDS: INSULIN LISPRO 100 UNIT/1 ML 3ML VIAL SQ SCH ×4 (07:54→21:00)
[2019-05-24] MEDS: POLYETHYLENE GLYCOL 3350 17 GM PACK PO SCH ×2 (09:00→21:00)
[2019-05-24] MEDS: SPIRONOLACTONE 25 MG TAB PO SCH ×2 (09:00→21:00)
[2019-05-24] MEDS: CARVEDILOL 3.125 MG TAB PO SCH ×2 (09:00→21:00)
[2019-05-24] MEDS: THIAMINE HCL 100 MG TAB PO SCH (09:00)
[2019-05-24] MEDS: VALSARTAN/SACUBITRIL 24MG/26MG 1 EA TAB PO SCH ×2 (09:00→21:00)
--- NOTE | 2019-05-24 09:36 | NUR ---
pt appears more responsive but still unable to take po safely at this time. family at bedside. ok with iv abx being admin
--- NOTE | 2019-05-24 10:00 | Diagnostic Imaging Report ---
EXAMINATION: CHEST SINGLE (PORTABLE) INDICATION: Shortness of breath COMPARISON: Chest radiograph 05/22/2019 FINDINGS: LINES/TUBES:Left chest pacer. EKG leads overlie the chest. LUNGS:The lungs are moderately inflated. There is perihilar fullness and indistinctness of the pulmonary vasculature. Bibasilar patchy opacities silhouetting both hemidiaphragms. PLEURA:Likely small bilateral pleural effusions. No pneumothorax. MEDIASTINUM:Cardiomediastinal silhouette is stably enlarged. Atherosclerotic calcifications of the thoracic aorta. BONES/SOFT TISSUES:No acute osseous injury. ABDOMEN:No free air under the diaphragm. IMPRESSION: Unchanged pulmonary edema and cardiomegaly. Small bilateral pleural effusions. Patchy opacities at both lung bases likely represent subsegmental atelectasis. Signed by: Aneesh Sparrow MD on 05/24/2019 9:57 AM
--- NOTE | 2019-05-24 10:45 | Progress Note ---
DATE: 05/24/2019 SUBJECTIVE: This patient is an 88-year-old female, who comes in with pneumonia and also with history of congestive heart failure. The patient also has history of CAD with placement of AICD. Currently, the patient is waking up and not as combative as before and encephalopathy has seems to be getting better. Family by the bedside. Discussed with family. Had a sip of water yesterday. No chest pain noted, no shortness of breath noted, but currently, the patient is on 2 L of oxygen and deterioration is not noted. However, the patient requires continuum of care and requires to be in [facility] for care. The patient's medications have been reviewed. The patient is currently on Flagyl and Rocephin for infection control. The patient is on O2 and Lasix is continued with beta-blockade and also for CHF. OBJECTIVE: VITAL SIGNS: Temperature is 98.2, pulse of 88, respirations of 24, blood pressure is 138/71, pulse oximetry of 100% on 2 L of nasal cannula. HEENT: Normocephalic, atraumatic. Pupils are reactive to light and accommodation. CVS: S1 and S2 normal. Regular rate and rhythm. ABDOMEN: Nontender and nondistended. EXTREMITIES: No clubbing, no cyanosis, and trace edema. LABORATORY VALUES: Today's white count is 14,000, hemoglobin of 9.7, hematocrit 30.9. Chemistry shows sodium of 139, potassium 3.9, BUN of 21, creatinine of 1.34. Toxicology, vancomycin trough is 14. Otherwise, coags are normal. Microbiology, cultures have been negative so far. No growth on blood culture. Gram stain and urine cultures have been negative. Chest x-ray done yesterday shows stable congestive heart failure. ASSESSMENT: An 88-year-old female with: 1. Acute encephalopathy secondary to probably antibiotics or metabolic. 2. Congestive heart failure, acute on chronic. Continue with IV Lasix. 3. Pneumonia. We will go ahead and also do MBS on her after she wakes up a little bit more. 4. Acute hypoxic respiratory failure, which is better. 5. Hypertension. Continue monitoring her blood pressure. 6. Anemia of chronic disease. Continue monitoring CBC on a regular basis. 7. Acute on chronic kidney injury. The patient is better. Continue with D5 for nutritional support. PLAN: I discussed with family at the bedside. We will continue to monitor the patient. The patient has been given an LTAC order to evaluate to need of transfer to an LTAC for further care in lieu of her continuing congestive heart failure and ongoing pneumonia. MD ANABEL Tucker/MODL /[id number]
--- NOTE | 2019-05-24 11:16 | NUR ---
WOUND CARE CONSULT/ SCREENING 88 YO FEMALE HX PNEUMONIA MABEL 11 ON STRICT PUP STATUS AND ALTERNATING PRESSURE SURFACE PATIENT SCREENED FOR POTENTIAL SKIN CONDITIONS R/T LOW MABEL SCORE (11) SKIN ASSESSMENT COMPLETE NO SKIN BREAK DOWN OR WOUNDS NOTED NURSING TO CONTINUE TO MONITOR PATIENT AND MAINTAIN STRICT PUP STATUS AND INTERVENTIONS NURSING TO RECONSULT WOUND CARE IF IN FUTURE THERE ARE ANY SKIN CARE CONCERNS OR WOUND CARE NEEDED Addendum: 05/24/19 at 1122 by Aubrey Barron RN Amended: Links added.
[2019-05-24] MEDS: CEFTRIAXONE SOD 1 GM/NS 50 ML 50 ML IV SCH (11:37)
--- NOTE | 2019-05-24 13:15 | NUR ---
ORDERS FOR LTAC EVAL TODAY CHOICE LETTER OBTAINED OVER PHONE FROM DTR REJI ANTONIO [phone] FOR [facility] MOT INITIATED AND PLACED ON CHART CHET [place] WITH [facility] NOTIFIED OF CONSULT SPOKE WITH DR SNYDER WHO REQUESTS AN ICU BED AT [facility] WITH PLANNED TRANSFER IN AM
--- NOTE | 2019-05-24 23:34 | Progress Note ---
DATE: 05/24/2019 Cardiology Progress Note SUBJECTIVE: No major events overnight. OBJECTIVE: VITAL SIGNS: Temperature afebrile, pulse 78, respiratory rate 20, blood pressure 118/61, and saturating 97% on 2 L nasal cannula. GENERAL: Elderly female, in no acute distress. CARDIOVASCULAR: Regular rate and rhythm. No murmurs, rubs, or gallops. LUNGS: Coarse breath sounds bilaterally. ABDOMEN: Soft, nontender, and nondistended. NEURO AND PSYCH: Disoriented. INPATIENT MEDICATIONS: Reviewed. LABORATORY DATA: Reviewed. TELEMETRY DATA: Reviewed, shows normal sinus rhythm. ASSESSMENT AND PLAN: 1. Acute hypoxemic respiratory failure. 2. Pneumonia. 3. Acute on chronic systolic heart failure exacerbation. 4. Coronary artery disease, status post coronary bypass graft surgery. 5. Carotid stenosis, status post carotid endarterectomy in the past. 6. Status post ICD placement. 7. Chronic kidney disease. 8. Hypertension. 9. Hyperlipidemia. 10. Diabetes. 11. Anemia. 12. Altered mental status. Continue current cardiovascular medications. Remains stable from a hemodynamic standpoint. We will continue to follow. MD YOLANDA Navas/HEIDY /[id number]
--- NOTE | 2019-05-24 23:53 | NUR ---
Pulmonary Medicine DATE 05/24/2019 SUBJECTIVE: 2 L/min oxygen NC delivery patient slept better today persistent confusion REVIEW OF SYSTEMS: AMS OBJECTIVE: VITAL SIGNS: vital signs noted and reviewed per the chart record. GENERAL: confused, moves all 4 extremities HEENT: Normocephalic, atraumatic. NECK: Supple. Throat midline. LUNGS: Bilateral air entry decreased at bases, few crackles. CARDIOVASCULAR: S1, S2. No murmurs, rubs, or gallops. ABDOMEN: Soft, nontender. EXTREMITIES: No clubbing, no cyanosis. trace edema. INTEGUMENT: No rash. No purpura. LABORATORY DATA: k 3.9, cr 1.34, wbc 14, hct 31, plt 254 IMPRESSION: 1. Abnormal chest radiography, clinical pulmonary edema 2. Abnormal chest radiography, bilateral moderate-sized pleural effusions. --s/p right thoracentesis c/w transudate 3. Treat hospital acquired pneumonia, acquired prior to admission. 4. Systolic acute on chronic CHF, LVEF 40%. 5. hx MVR 6. 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 CAD? 7. Hx AICD 8. PVD, s/p CEA. 9. Diabetes. 10. Hypertension. 11. Hyperlipidemia. 12. Anemia. 13. worsening encephalopathy, toxic metabolic suspected 14. urinary retention PLAN continue antibiotics for hospital-acquired organisms diuresis, salt restriction in general encourage diet ensure negative fluid balance if feasible. If SOB persists, will consider thoracentesis follow cultures cardiology evaluating/optimizing cardiac structure and function continue encephalopathy workup Thank you very much, Dr. Cerna for allowing me a chance to participate in the care of Ms. Waldrop. Please call for any questions.
[2019-05-25] VITALS (8 sets, daily range): BP systolic 114–143; BP diastolic 48–88
[2019-05-25] MEDS: METRONIDAZOLE 500MG/NS 100ML 100 ML IV SCH ×3 (01:00→17:09)
[2019-05-25] MEDS ORDERED: SODIUM CHLORIDE 0.9% 1000ML 500 ML IV ONE (03:00)
[2019-05-25] MEDS ORDERED: SODIUM CHLORIDE 0.9% 1000ML 1,000 ML ONE (03:06)
[2019-05-25] MEDS: FUROSEMIDE INJ 10 MG/ML 2 ML VIAL IV SCH (06:00)
[2019-05-25 06:26] LABS: ANION GAP 15.2 mmol/L (8-16); CALCIUM 8.2 mg/dL (8.4-10.2); CREATININE, SERUM 1.25 mg/dL (0.57-1.11); POTASSIUM 3.2 mmol/L (3.5-5.1)
[2019-05-25] MEDS: FAMOTIDINE 20 MG/2 ML VIAL IV SCH ×2 (06:43→17:09)
[2019-05-25 07:02] LABS: BASOPHILS # (AUTO) 0.1 (0.0-0.1); BASOPHILS % 0.5 % (0.0-1.0); EOSINOPHILS # (AUTO) 0.3 (0.0-0.4); EOSINOPHILS % 2.5 % (0.0-6.0); HEMATOCRIT 28.5 % (34.2-44.1); HEMOGLOBIN 9.1 g/dL (12.0-16.0); LYMPHOCYTES # (AUTO) 1.8 (1.0-3.2); LYMPHOCYTES % 13.4 % (18.0-39.1); MEAN CORPUSCULAR HGB CONC 31.9 g/dL (31-35); MEAN CORPUSCULAR VOLUME 94.1 fL (81-99); MONOCYTES # (AUTO) 0.8 (0.2-0.8); MONOCYTES % 6.2 % (4.4-11.3); NEUTROPHILS # (AUTO) 9.8 (2.1-6.9); NEUTROPHILS % 74.9 % (38.7-80.0); PLATELET COUNT 239 x10e3/uL (140-360); RED BLOOD COUNT 3.03 x10e6/uL (3.6-5.1); RED CELL DISTRIBUTION WIDTH 17.7 % (11.7-14.4)
[2019-05-25] MEDS: INSULIN LISPRO 100 UNIT/1 ML 3ML VIAL SQ SCH ×3 (08:32→17:40)
--- NOTE | 2019-05-25 08:58 | Diagnostic Imaging Report ---
EXAMINATION: CHEST SINGLE (PORTABLE) INDICATION: Shortness of breath, CHF COMPARISON: Chest radiograph of 05/24/2019 FINDINGS: LINES/TUBES:Left chest pacer. Acro EKG LUNGS:The lungs are moderately inflated. There is perihilar fullness and indistinctness of the pulmonary vasculature. Bibasilar patchy opacities silhouette both hemidiaphragms. PLEURA:Small bilateral pleural effusions. No pneumothorax. MEDIASTINUM:The cardiomediastinal silhouette appears unchanged in size and shape. Atherosclerotic calcifications of the thoracic aorta. BONES/SOFT TISSUES:No acute osseous injury. ABDOMEN:No free air under the diaphragm. IMPRESSION: Unchanged pulmonary edema. Small bilateral pleural effusions. Bibasilar patchy opacities essentially unchanged, likely subsegmental atelectasis. Signed by: Aneesh Sparrow MD on 05/25/2019 8:55 AM
[2019-05-25] MEDS: POLYETHYLENE GLYCOL 3350 17 GM PACK PO SCH (09:00)
[2019-05-25] MEDS: VALSARTAN/SACUBITRIL 24MG/26MG 1 EA TAB PO SCH (09:00)
[2019-05-25] MEDS: THIAMINE HCL 100 MG TAB PO SCH (09:00)
[2019-05-25] MEDS: CARVEDILOL 3.125 MG TAB PO SCH (09:00)
[2019-05-25] MEDS: SPIRONOLACTONE 25 MG TAB PO SCH (09:00)
--- NOTE | 2019-05-25 09:12 | Progress Note ---
DATE: 05/25/2019 SUBJECTIVE: An 88-year-old female, who comes in with: 1. Pneumonia. 2. Acute CHF exacerbation. 3. Encephalopathy. The patient continues to be encephalopathic. The patient is confused, but more responsive and responding to questions. No chest pain noted. No shortness of breath. The patient has not had anything to eat. Speech evaluation will be done and also the patient is very debilitated with need of physical therapy, which is ongoing and continues. The patient's decline in functional status noted and will need continuum of therapy in the hospital or LTAC setting. OBJECTIVE: VITAL SIGNS: Temperature is 98.0, pulse of 85, blood pressure is 141/82, and pulse oximetry of 100% on 2 L of nasal cannula. HEENT: Normocephalic and atraumatic. Nasal cannula with 2 L ongoing. CVS: S1 and S2, irregular. ABDOMEN: Nontender and nondistended. EXTREMITIES: No clubbing. No cyanosis. No edema. MUSCULOSKELETAL SYSTEM: Marked wasting with decreased tonicity noted. LABORATORY VALUES: White count is 14,000 yesterday, hemoglobin of 9.7, and hematocrit of 30.9; today's is not available. Potassium of 3.2, sodium of 141, BUN of 20, and creatinine of 1.5, which is better than yesterday. Glucose of 136. The patient is currently on D5. NS at 70 mL an hour bolus of 500 mL was given yesterday because of low urine output. MICROBIOLOGY: Urine cultures have been negative. Blood cultures have been negative so far. IMAGING STUDIES: Chest x-ray done yesterday showed unchanged pulmonary edema and cardiomegaly, small bilateral pleural effusion, patchy opacity of lung bases. MEDICATIONS: At this time, 1. Famotidine. 2. Rocephin. 3. Lorazepam as needed. 4. Metronidazole. 5. Thiamine. 6. Valsartan. 7. Aldactone. 8. Carvedilol. 9. Furosemide. 10. Lispro. 11. Zofran as needed. ASSESSMENT: An 88-year-old female with: 1. Acute encephalopathy. 2. Congestive heart failure, acute on chronic. 3. Pneumonia. 4. Acute hypoxic respiratory failure, resolved. 5. Hypertension. 6. Anemia of chronic disease. 7. Acute on chronic kidney injury. PLAN: 1. Physical Therapy will be consulted. 2. A consult with Speech Therapy will be done. 3. We will continue to hold back the Lasix today until chest x-ray has been done secondary to low urine output. 4. Pneumonia, we will continue with antibiotics. 5. Hypertension, continue with her carvedilol. Further recommendation per clinical course. The patient is currently very sick and we will need continuous therapy and also medications. Further information, look in the chart. LTAC has been ordered and has been reviewed. MD ANABEL Tucker/MODL /[id number]
[2019-05-25] MEDS ORDERED: POTASSIUM CHLORIDE 20MEQ/100ML 100 ML IV ONE (10:30)
--- NOTE | 2019-05-25 11:06 | Diagnostic Imaging Report ---
Exam: KUB - 2 views Indication: NG tube placement Comparison: CT abdomen pelvis of 05/20/2019, chest radiograph of 05/25/2019 Findings: Enteric tube projects below the diaphragm with tip and side-port in the stomach. EKG leads overlie the chest. Nonobstructive bowel gas pattern. No free air. The osseous structures appear unremarkable. Impression: NG tube projects below the diaphragm with tip and side-port in the stomach. Signed by: Aneesh Sparrow MD on 05/25/2019 11:03 AM
--- OUTSIDE RECORDS SUMMARY | 2019-05-25 11:06 | XMS REPORT ---
[facility] Address Unknown Phone Unavailable Care Team Providers Care Entertainer Or Variety Artist Name Role Phone Damon SNYDER Unavailable Unavailable Problems This patient has no known problems. Allergies, Adverse Reactions, Alerts This patient has no known allergies or adverse reactions. Medications This patient has no known medications. Results Test Description Test Time Test Comments Text Results Atomic Results Result Comments CHEST SINGLE (PORTABLE) 2019-05-25 08:53:00 [place] [address] Patient Name: JERONIMO PIERRE MR #: [id number] : 1930 Age/Sex: 88/F Req #: [id number] Adm Physician: CASSIUS SNYDER MD Ordered by: PAULINO MENESES MD Report #: [id number] Location: [facility] Room/Bed: [place] [address] Procedure: [id number] DX/CHEST SINGLE (PORTABLE) Exam Date: 05/25/19 Exam Time: 0555 REPORT STATUS: Signed EXAMINATION: CHEST SINGLE (PORTABLE) IND ICATION: Shortness of breath, CHF COMPARISON: Chest radiograph of 05/24/2019 FINDINGS: LINES/TUBES:Left chest pacer. Acro EKG LUNGS:The lungs are moderately inflated. There is perihilar fullness and indistinctness of the pulmonary vasculature. Bibasilar patchy opacities silhouette both hemidiaphragms. PLEURA:Small bilateral pleural effusions. No pneumothorax. MEDIASTINUM:The cardiomediastinal silhouette appears unchanged in size and shape. Atherosclerotic calcifications of the thoracic aorta. BONES/SOFT TISSUES:No acute osseous injury. ABDOMEN:No free air under the diaphragm. IMPRESSION: Unchanged pulmonary edema. Small bilateral pleural effusions. Bibasilar patchy opacities essentially unchanged, likely subsegmental atelectasis. Signed by: Esvin Luna MD on 05/25/2019 8:55 AM Dictated By: ESVIN LUNA MD 4 Transcribed By: VIDA on 05/25/19854 COPY TO: PAULINO MENESES MD, [facility] CHEST SINGLE (PORTABLE) 2019-05-24 09:55:00 [place] [address] Patient Name: JERONIMO PIERRE MR #: [id number] : 1930 Age/Sex: 88/F Req #: [id number] Adm Physician: CASSIUS SNYDER MD Ordered by: PAULINO MENESES MD Report #: [id number] Location: [facility] Room/Bed: [place] [address] Procedure: [id number] DX/CHEST SINGLE (PORTABLE) Exam Date: 05/24/19 Exam Time: 917 REPORT STATUS: Signed EXAMINATION: CHEST SINGLE (PORTABLE) IND ICATION: Shortness of breath COMPARISON: Chest radiograph 05/22/2019 FINDINGS: LINES/TUBES:Left chest pacer. EKG leads overlie the chest. LUNGS:The lungs are moderately inflated. There is perihilar fullness and indistinctness of the pulmonary vasculature. Bibasilar patchy opacities silhouetting both hemidiaphragms. PLEURA:Likely small bilateral pleural effusions. No pneumothorax. MEDIASTINUM:Cardiomediastinal silhouette is stably enlarged. Atherosclerotic calcifications of the thoracic aorta. BONES/SOFT TISSUES:No acute osseous injury. ABDOMEN:No free air under the diaphragm. IMPRESSION: Unchanged pulmonary edema and cardiomegaly. Small bilateral pleural effusions. Patchy opacities at both lung bases likely represent subsegmental atelectasis. Signed by: Esvin Luna MD on 05/24/2019 9:57 AM Dictated By: ESVIN LUNA MD 6 Transcribed By: VIDA on 05/24/19956 COPY TO: PAULINO MENESES MD, [facility] CHEST SINGLE (PORTABLE) 2019-05-23 10:49:00 [place] [address] Patient Name: JERONIMO PIERRE MR #: [id number] : 1930 Age/Sex: 88/F Req #: [id number] Adm Physician: CASSIUS SNYDER MD Ordered by: PAULINO MENESES MD Report #: [id number] Location: [facility] Room/Bed: [place] [address] Procedure: [id number] DX/CHEST SINGLE (PORTABLE) Exam Date: Exam Time: REPORT STATUS: Signed Chest, 1 view, 05/23/2019. History: CHF, pneumoni a. Comparison: 05/22/2019. Findings: The cardiomediastinal silhouette and pulmonary vasculature are prominent with diffuse hazy bilateral opacities which also obscure both hemidiaphragms, without change. Left subclavian dual- lead pacer and median sternotomy wires are unchanged in appearance. There are no acute osseous or soft tissue abnormalities. Impression: No significant change in diffuse bilateral pulmonary opacities consistent with CHF. Signed by: Jung Flores on 05/23/2019 10:50 AM Dictated By: JUNG FLORES MD 1050 Transcribed By: VIDA on 05/23/19 1050 COPY TO: PAULINO MENESES MD, [facility] CHEST SINGLE (PORTABLE) 2019-05-22 08:51:00 [place] [address] Patient Name: JERONIMO PIERRE MR #: [id number] : 1930 Age/Sex: 88/F Req #: [id number] Adm Physician: CASSIUS SNYDER MD Ordered by: PAULINO MENESES MD Report #: [id number] Location: [facility] Room/Bed: [place] [address] Procedure: [id number] DX/CHEST SINGLE (PORTABLE) Exam Date: 05/22/19 Exam Time: 0645 REPORT STATUS: Signed EXAM: CHEST SINGLE (PORTABLE) DATE: 05/22/2019 5:00 AM INDICATION: CHF COMPARISON: 05/20/2019 FINDINGS: Left-sided pacing device identified in stable position. Median sternotomy wires again noted. The trachea is midline. Again identified are diffuse increased interstitial opacities, similar to the prior examination. Stable small pleural effusions noted. There is no evidence for large focal consolidation or pneumothorax. The cardiomediastinal silhouette is stable in appearance. No acute osseous abnormality is identified. IMPRESSION: No significant interval change from 05/20/2019. Signed by: Dr. Alex You MD on 05/22/2019 9:14 AM Dictated By: ALEX YOU MD 3 Transcribed By: VIDA on 05/22/19913 COPY TO: PAULINO MENESES MD, ABI CT ABDOMEN/PELVIS WO 2019-05-20 14:33:00 [place] [address] Patient Name: JERONIMO PIERRE MR #: [id number] : 1930 Age/Sex: 88/F Req #: [id number] Adm Physician: CASSIUS SNYDER MD Ordered by: PAULINO MENESES MD Report #: [id number] Location: [facility] Room/Bed: [place] [address] Procedure: [id number] CT/CT ABDOMEN/PELVIS WO Exam Date: 05/20/19 Exam Time: 1328 REPORT STATUS: Signed EXAM: CT Abdomen and Pelvis WITHOUT contrast I NDICATION: Abdominal pain, delirium. COMPARISON: Abdominal ultrasound 05/17/2019. TECHNIQUE: Abdomen and pelvis were scanned utilizing a multidetector helical scanner from the lung base to the pubic symphysis without administration of IV contrast. Absence of intravenous contrast decreases sensitivity for detection of focal lesions and vascular pathology. Coronal and sagittal reformations were obtained. Routine protocol was performed. IV CONTRAST: None. ORAL CONTRAST: None. RADIATION DOSE: Total DLP: 306 mGy*cm Estimated effe ctive dose: (DLP x 0.015 x size factor) mSv COMPLICATIONS: None FINDINGS: LINES and TUBES: None. LOWER THORAX: Small bilateral pleural effusions, left greater than right with associated patchy dependent opacities. Mild cardiomegaly. Partially seen pacemaker leads. Mitral annular calcifications. Coronary atherosclerosis. HEPATOBILIARY No focal hepatic lesions. There is mild extrahepatic biliary dilation likely post cholecystectomy reservoir effect. GALLBLADDER: Status post cholecystectomy. SPLEEN: No splenomegaly. PANCREAS: Atrophic in appea ambar. No definite mass or biliary ductal dilatation, although evaluation is limited. ADRENALS: No adrenal nodules KIDNEYS/URETERS: No evidence of hydronephrosis, mass, or stone. GI TRACT: No abnormal distention, wall thickening, or evidence of bowel obstruction. Appendix is normal. PELVIC ORGANS/BLADDER: Distended bladder which contains a small amount of air. Status post hysterectomy. LYMPH NODES: No lymphadenopathy. VESSELS: Extensive atherosclerotic calcifications of the abdominal aorta and branch vessels. PERITONEUM / RETROPERITONEUM: No free air or fluid. BONES: Diffuse osteopenia. Age indeterminate moderate compression deformity of the T12 vertebral body. No bony retropulsion. SOFT TISSUES: Diffuse atrophy of the musculature. IMPRESSION: No acute CT abnormality in the abdomen or pelvis. Small bilateral pleural effusions with associated dependent opacities, likely atelectasis. Superimposed pneumonia is possible in the appropriate clinical setting. Diffuse osteopenia. Age-indeterminate moderate compression deformity of the T12 vertebral body. Distended bladder which contains a small amount of air, which may be iatrogenic. Signed by: Dr. Laura Bradley MD on 05/20/2019 2:40 PM Dictated By: LAURA BRADLEY MD 1440 Transcribed By: VIDA on 05/20/19 1440 COPY TO: PAULINO MENESES MD, ABI CT BRAIN WO 2019-05-20 14:09:00 [place] [address] Patient Name: JERONIMO PIERRE MR #: [id number] : 1930 Age/Sex: 88/F Req #: [id number] Adm Physician: CASSIUS SNYDER MD Ordered by: CASSIUS SNYDER MD Report #: [id number] Location: [facility] Room/Bed: [place] [address] Procedure: [id number] CT/CT BRAIN WO Exam Date: 05/20/19 Exam Time: 1400 REPORT STATUS: Signed EXAMINATION: Head CT HISTORY: Alteration of consciousne ss, pneumonia, hypoxia COMPARISON: None. TECHNIQUE: Multidetector axial images were obtained without contrast from the foramen magnum to the vertex . The images were reconstructed using brain and bone algorithms. Thin section brain images were reformatted into coronal and sagittal planes. Image quality: Motion/streaking artifact significantly limits the evaluation of the skull base and posterior cranial fossa. Dose modulation, iterative reconstruction, and/or weight based adjustment of the mA/kV was utilized to reduce the radiation dose to as low as reasonably achievable. FINDINGS: Parenchyma: 1. Few scattered and mildly confluent periventricular white matter hypodensities, most likely nonspecific chronic microvascular ischemic changes 2. No mass or hemorrhage. No CT evidence of acute territorial vascular insult. Extra-axial spaces:No abnormal density. No extra-axial fluid collections Brain volume: Normal for age. Ventricles: No hydrocephalus or displacement. Arteries: No density suggestive of thrombus. Dural sinuses: No abnormal density. Extra-axial spaces: No abnormal density. Foramen magnum: No mass, Chiari malformation, or basilar invagination. Sella: No obvious mass. Paranasal/mastoid sinuses: Imaged portions unremarkable. Skull/Scalp: No lytic or blastic lesions. No fractures. IMPRESSION: 1. Suboptimal study due to patient's motion, grossly no mass, acute intracranial hemorrhage, hydrocephalus, midline shift or herniation. 2. Mild chronic microvascular ischemic changes. Signed by: Dr. Liza Casiano M.D. on 05/20/2019 2:14 PM Dictated By: LIZA CASIANO MD 13 Transcribed By: VIDA on 05/20/19 141 COPY TO: CASSIUS SNYDER MD CHEST SINGLE (PORTABLE) 2019-05-20 07:12:00 [place] [address] Patient Name: JERONIMO PIERER MR #: [id number] : 1930 Age/Sex: 88/F Req #: [id number] Adm Physician: CASSIUS SNYDER MD Ordered by: PAULINO MENESES MD Report #: [id number] Location: [facility] Room/Bed: [place] [address] Procedure: [id number] DX/CHEST SINGLE (PORTABLE) Exam Date: 05/20/19 Exam Time: 0550 REPORT STATUS: Signed EXAMINATION: CHEST SINGLE (PORTABLE) IND ICATION: CHF. COMPARISON: Chest radiograph 05/19/19. FINDINGS: TUBES and LINES: Left-sided pacemaker in unchanged position. LUNGS: Lungs are moderately inflated. There are increasing bilateral perihilar and interstitial opacities. Increasing left lower lung opacity and slightly decreased right lower lung opacity. PLEURA: Small bilateral pleural effusions. No pneumothorax. HEART AND MEDIASTINUM: Cardiac size is mildly enlarged. There are atherosclerotic calcifications within the aorta. Status post valve replacement. BONES AND SOFT TISSUES: No acute osseous lesion. Soft tissues are unremarkable. UPPER ABDOMEN: No free air under the diaphragm. IMPRESSION: Increasing pulmonary edema. Persistent small bilateral pleural effusions. Opacities in lower lungs may represent atelectasis, although pneumonia is possible in the appropriate clinical setting. Signed by: Dr. Laura Bradley MD on 05/20/2019 7:16 AM Dictated By: LAURA BRADLEY MD 5 Transcribed By: VIDA on 05/20/19715 COPY TO: PAULINO MENESES MD, [facility] CHEST SINGLE (PORTABLE) 2019-05-19 07:31:00 [place] [address] Patient Name: JERONIMO PIERRE MR #: [id number] : 1930 Age/Sex: 88/F Req #: [id number] Adm Physician: CASSIUS SNYDER MD Ordered by: PAULINO MENESES MD Report #: [id number] Location: [facility] Room/Bed: [place] [address] Procedure: [id number] DX/CHEST SINGLE (PORTABLE) Exam Date: 05/19/19 Exam Time: 619 REPORT STATUS: Signed EXAMINATION: CHEST SINGLE (PORTABLE) IND ICATION: chf [id number] COMPARISON: 05/18/2019 FINDINGS: AP view TUBES and LINES: Stable 2-lead pacemaker device overlying the left upper chest with leads overlying the right uterine appendage and right ventricle. LUNGS: Lungs are well inflated. Worsening bilateral pulmonary edema. No new consolidations. Bibasilar atelectasis. PLEURA: Small bilateral pleural effusion, increased. No pneumothorax. HEART AND MEDIASTINUM: Stable mild enlargement of the cardiac silhouette. BONES AND SOFT TISSUES: No acute osseous lesion. Soft tissues are unremarkable. UPPER ABDOMEN: No free air under the diaphragm. IMPRESSION: Interval worsening bilateral pulmonary edema with increasing small bilateral pleural effusions. Signed by: Dr. Karly Moreno M.D. on 05/19/2019 7:32 AM Dictated By: KARLY MORENO MD 1 Tra nscribed By: VIDA on 05/19/19731 COPY TO: PAULINO MENESES MD, [facility]IM THORACENTESIS/US GUIDED 2019-05-18 14:02:00 [place] [address] Patient Name: JERONIMO PIERRE MR #: [id number] : 1930 Age/Sex: 88/F Req #: [id number] [facility] Physician: CASSIUS SNYDER MD Ordered by: PAULINO MENESES MD Report #: [id number] Location: [facility] Room/Bed: [place] [address] Procedure: [id number] US/THORACENTESIS/US GUIDED Exam Date: Exam Time: REPORT STATUS: Signed Ultrasound guided right thoracentesis, 05/18/2019. Cli nical History: Right pleural effusion. Modality: Ultrasound. Sedation: None. Drafter Refrigeration: Dax Ngo MD. Training And Development Officer: None. Estimated Blood Loss: 1cc Specimen: 700 cc of yellow fluid. Technique: Informed consent was obtained. The risks of pain, bleeding, infection, lung collapse/pneumothorax, injury to adjacent structures, and adverse medication reactions were discussed with the patient. The patient's right hemithorax was scanned from the back, with the patient in a sitting position. After the largest fluid pocket area was marked, the skin was prepped and draped in the usual sterile manner. The area was anesthetized with 1% lidocaine, a 5 Georgian one-step was advanced into the pleural space under ultrasound guidance. After completion of drainage, the catheter was removed. There was no evidence of immediate complication. Post procedure chest radiograph is no evidence of pneumothorax. Impression: S uccessful and uncomplicated ultrasound guided right thoracentesis. Signed by: Dax Ngo MD on 05/18/2019 2:03 PM Dictated By: DAX NGO MD 02 Transcribed By: VIDA on 05/18/191402 COPY TO: PAULINO MENESES MD, [facility] CHEST XRAY POST PROCEDURE 2019-05-18 14:01:00 [facility] [address] [place] [address] Patient Name: JERONIMO PIERRE MR #: [id number] : 1930 Age/Sex: 88/F Req #: [id number] Adm Physician: CASSIUS SNYDER MD Ordered by: DAX NGO MD Report #: [id number] Location: [facility] Room/Bed: [place] [address] Procedure: [id number] DX/CHEST XRAY POST PROCEDURE Exam Date: Exam Time: REPORT STATUS: Signed Chest, portable AP view History: Status post right tho racentesis Comparison: 05/16/2019 IMPRESSION: There is no postprocedural pneumothorax. No significant right pleural effusion remains. Trace left pleural effusion is present. The heart is within normal limits of size. Patient is status post median sternotomy. Left subclavian pacemaker is in place. Signed by: Dax Ngo MD on 05/18/2019 2:02 PM Dictated By: DAX NGO MD 01 Transcribed By: VIDA on 05/18/191401 COPY TO: DAX NGO MD US ABDOMEN COMPLETE 2019-05-17 17:00:00 [place] [address] Patient Name: JERONIMO PIERRE MR #: [id number] : 1930 Age/Sex: 88/F Req #: [id number] Adm Physician: CASSIUS SNYDER MD Ordered by: RENEA PASCUAL MD Report #: [id number] Location: ICU Room/Bed: ICU 196-1 Procedure: [id number] US/US ABDOMEN COMPLETE Exam Date: 05/17/19 Exam Time: 1626 REPORT STATUS: Signed Abdominal ultrasound. History: Pneumonia, hy poxia. Comparison: None available. Discussion: Transverse and longitudinal images of the abdomen were obtained demonstrating a liver of normal size and echogenicity measuring 13.5 cm in length. The portal vein is patent with hepatopetal flow and is within normal limits measuring 9 mm in diameter. The biliary tree is within normal limits with the common bile duct measuring 8 mm in diameter. The gallbladder is absent. The kidneys are normal in size bilaterally without evidence of hydronephrosis, stones, or mass. There is mild increase in cortical ech ogenicity bilaterally. The right kidney measures 9.9 cm and the left kidney measures 10.1 cm in length. The spleen is normal in size and appearance measuring 7.8 cm in length. The pancreatic head and body are visualized and are normal in appearance. The abdominal aorta and IVC are within normal limits. There is no evidence of free fluid. IMPRESSION: 1. Mildly increased renal echogenicity suggestive of medical renal disease. 2. Status post cholecystectomy. Otherwise unremarkable abdominal ultrasound. Signed by: Jung Flores on 05/17/2019 5:03 PM Dictated By: JUNG FLORES MD 02 Transcribed By: VIDA on 05/17/191702 COPY TO: RENEA PASCUAL MD CHEST (INCL MEDIASTINUM) 2019-05-17 16:13:00 [place] [address] Patient Name: JERONIMO PIERRE MR #: [id number] : 1930 Age/Sex: 88/F Req #: [id number] Adm Physician: CASSIUS SNYDER MD Ordered by: PAULINO MENESES MD Report #: [id number] Location: ICU Room/Bed: ICU 196-1 Procedure: [id number] US/US CHEST (INCL MEDIASTINUM) Exam Date: 05/17/19 Exam Time: 1510 REPORT STATUS: Signed Chest ultrasound. History: Pleural effusions. Comparison: Chest x-ray from yesterday. Discussion: Transverse and longitudinal sonographic imaging of the bilateral posterior chest was performed. Moderate bilateral pleural effusions are identified. IMPRESSION: Moderate bilateral pleural effusions. Signed by: Jung Flores on 05/17/2019 4:13 PM Dictated By: JUNG FLORES MD 12 Transcribed By: VIDA on 05/17/191612 COPY TO: PAULINO MENESES MD, [facility] CHEST SINGLE (PORTABLE) 2019-05-16 18:07:00 [place] [address] Patient Name: JERONIMO PIERRE MR #: [id number] : 1930 Age/Sex: 88/F Req #: [id number] Adm Physician: CASSIUS SNYDER MD Ordered by: JUNG KOROMA DO Report #: [id number] [facility] Procedure: [id number] DX/CHEST SINGLE (PORTABLE) Exam Date: 05/16/19 Exam Time: 1750 REPORT STATUS: Signed Examination: Single AP view of the chest. COMPAR JEFF: None. INDICATION: Shortness of breath, CHF, recently hospitalized for pneumonia IMPRESSION: 1. Lines and Tubes: Left upper chest multiple lead cardiac device. 2. Lungs are well-inflated. Bilateral interstitial opacities extending from the alfonso. Increased bibasilar density and obscuration of bilateral hemidiaphragms consistent with bilateral pleural effusions and likely underlying compressive atelectasis or consolidation.. Findings likely represent decompensated CHF. 3. Cardiac silhouette is obscured. Central pulmonary venous congestion. 4. No acute bony a bnormalities. Signed by: Dr. Brent Bowie M.D. on 05/16/2019 6:08 PM Dictated By: BRENT BOWIE MD 07 Transcribed By: VIDA on 05/16/191807 COPY TO: JUNG KOROMA DO
--- NOTE | 2019-05-25 15:15 | NUR ---
Pulmonary Medicine DATE 05/25/2019 SUBJECTIVE: 100% oxygen saturation NGT placed still ao x 1 talking today however tube feeds 10/hr water 15/ q2 hrs REVIEW OF SYSTEMS: AMS OBJECTIVE: VITAL SIGNS: vital signs noted and reviewed per the chart record. GENERAL: confused, moves all 4 extremities HEENT: Normocephalic, atraumatic. NECK: Supple. Throat midline. LUNGS: Bilateral air entry decreased at bases, few crackles. CARDIOVASCULAR: S1, S2. No murmurs, rubs, or gallops. ABDOMEN: Soft, nontender. EXTREMITIES: No clubbing, no cyanosis. trace edema. INTEGUMENT: No rash. No purpura. LABORATORY DATA: k 3.2, cr 1.25. wbc 13. IMPRESSION: 1. Abnormal chest radiography, clinical pulmonary edema 2. Abnormal chest radiography, bilateral moderate-sized pleural effusions. --s/p right thoracentesis c/w transudate 3. Treat hospital acquired pneumonia, acquired prior to admission. 4. Systolic acute on chronic CHF, LVEF 40%. 5. hx MVR 6. 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 CAD? 7. Hx AICD 8. PVD, s/p CEA. 9. Diabetes. 10. Hypertension. 11. Hyperlipidemia. 12. Anemia. 13. worsening encephalopathy, toxic metabolic suspected 14. urinary retention PLAN continue antibiotics for hospital-acquired organisms diuresis, salt restriction in general encourage diet intermittent CXR until clearance ensure negative fluid balance if feasible. If SOB persists, will consider thoracentesis follow cultures cardiology evaluating/optimizing cardiac structure and function continue encephalopathy workup Thank you very much, Dr. Cerna for allowing me a chance to participate in the care of Ms. Waldrop. Please call for any questions.
--- NOTE | 2019-05-25 15:20 | NUR ---
PT received a call from ZA Lyons to come back to [facility] to push thru with the eval as pt was requesting to go to the toilet. Addendum: 05/25/19 at 2249 by Gume Buckley PT Amended: Links added.
[2019-05-25] MEDS: CEFTRIAXONE SOD 1 GM/NS 50 ML 50 ML IV SCH (15:53)
--- NOTE | 2019-05-25 16:20 | Progress Note ---
DATE: 05/25/2019 Cardiology Progress Note SUBJECTIVE: No major events overnight. OBJECTIVE: VITAL SIGNS: Temperature afebrile, pulse 84, respiratory rate 16, blood pressure 143/67, and saturating 100% on 2 L nasal cannula. GENERAL: An elderly female, in no acute distress. CARDIOVASCULAR: Regular rate and rhythm. No murmurs, rubs, or gallops. LUNGS: Coarse breath sounds bilaterally. ABDOMEN: Soft, nontender, nondistended. NEURO AND PSYCH: Disoriented. INPATIENT MEDICATIONS: Reviewed. LABORATORY DATA: Reviewed. TELEMETRY DATA: Reviewed, shows normal sinus rhythm. ASSESSMENT: 1. Pneumonia. 2. Ilzvj-qm-cewzsup systolic heart failure exacerbation. 3. Coronary artery disease, status post bypass surgery in the past. 4. Carotid stenosis, status post endarterectomy in the past. 5. Status post AICD placement. 6. Altered mental status. PLAN: Remain stable from cardiovascular standpoint. Continue current medications. Thank you for this consult. We will continue to follow. MD YOLANDA Navas/[facility] /[id number]
--- NOTE | 2019-05-25 19:15 | NUR ---
PATIENT DISCHARGED TO [facility] DISCHARGE SUMMARY.
--- NOTE | 2019-07-09 19:44 | Discharge Summary ---
This patient is admitted to the hospital for pneumonia, acute respiratory failure, and acute on chronic congestive heart failure, volume overload, possible pneumonia, bilateral pleural effusion, and anemia. The patient spent time in ICU. Dr. Coe, Dr. Mendez, and Dr. Sandeep Gonzalez from the case. The patient's respiratory issues resolved. The patient has acute on chronic congestive heart failure, we will continue diuresing the patient. Moderate bilateral pleural effusion. Patient underwent thoracentesis. For renal insufficiency, we will keep on monitoring the creatinine. Creatinine was up to 1.80. White count also was monitored. The patient's leukocytosis did get better. Antibiotics were restarted. The patient felt better and encephalopathy also diagnosed. The patient was not responding very well to complete treatment and needed ongoing treatment and this in mind, LTAC evaluation was done. The patient got accepted to [facility] and the patient was transferred to [facility]. FINAL DIAGNOSIS: Leukocytosis, bilateral pleural effusion, pneumonia, acute on chronic congestive heart failure, debility, and acute on chronic kidney injury. For further information, look in the chart. For medicines on discharge, look in the medical reconciliation sheet. ADDITIONAL DIAGNOSIS: Leukocytosis. MD ANABEL Tucker/[facility] /[id number]
== END 2019-05-25 19:50 | DRG 871 ==
LOC: ER 16:47 → ERHOLD 17:55 → ICU 23:15 → IMCU 05-17 22:30
PROVIDERS: ADMIT Family Medicine; ATTEND Family Medicine
PROC: 0W993ZX Drainage of Right Pleural Cavity, Percutaneous Approach, Diagnostic (ICD-10-PCS; principal; 2019-05-18)
DX: A41.9 Sepsis, unspecified organism (principal); J18.9 Pneumonia, unspecified organism; I50.23 Acute on chronic systolic (congestive) heart failure; J96.01 Acute respiratory failure with hypoxia; J69.0 Pneumonitis due to inhalation of food and vomit; G92 Toxic encephalopathy; N17.9 Acute kidney failure, unspecified; N30.00 Acute cystitis without hematuria; J90 Pleural effusion, not elsewhere classified; I13.0 Hypertensive heart and chronic kidney disease with heart failure and stage 1 through stage 4 chronic kidney disease, or unspecified chronic kidney disease; D64.9 Anemia, unspecified; E78.5 Hyperlipidemia, unspecified; Z95.1 Presence of aortocoronary bypass graft; Z90.49 Acquired absence of other specified parts of digestive tract; Z95.810 Presence of automatic (implantable) cardiac defibrillator; R33.9 Retention of urine, unspecified; Z95.2 Presence of prosthetic heart valve; I73.9 Peripheral vascular disease, unspecified; I25.10 Atherosclerotic heart disease of native coronary artery without angina pectoris; I65.29 Occlusion and stenosis of unspecified carotid artery; E11.42 Type 2 diabetes mellitus with diabetic polyneuropathy; R13.10 Dysphagia, unspecified; R53.81 Other malaise; G47.00 Insomnia, unspecified; D63.8 Anemia in other chronic diseases classified elsewhere; N18.9 Chronic kidney disease, unspecified; R10.9 Unspecified abdominal pain; E87.6 Hypokalemia; E11.22 Type 2 diabetes mellitus with diabetic chronic kidney disease; T36.95XA Adverse effect of unspecified systemic antibiotic, initial encounter; Y92.230 Patient room in hospital as the place of occurrence of the external cause
CPT/HCPCS: 32555; 36415; 36600; 51701; 70450; 71045; 74018; 74176; 74470; 76604; 76700; 80048; 80053; 80076; 80202; 81001; 82140; 82550; 82553; 82607; 82746; 82805; 82945; 82948; 83605; 83615; 83690; 83735; 83880; 84157; 84436; 84443; 84479; 84484; 85025; 85610; 85730; 86592; 86850; 86900; 87040; 87070; 87086; 87205; 87400; 88112; 88305; 89051; 93005; 93306; 94640; 94660; 96360; 96367; 96372; 96376; 97139; 99284; J0692; J0696; J1650; J1940; J2060; J2543; J3370; J3411; J3480; J7030; J7050; J7070

== ENCOUNTER → 2020-08-13 | Outpatient (CLI) | payer MEDICARE ==
[~2020-08-13] MED LIST: FUROSEMIDE40 MG PO; GABAPENTIN300 MG PO; LEVOTHYROXINE50 MCG PO; LISINOPRIL10 MG PO; MEGARED OMEGA-1 EAC1 PO; SIMVASTATIN40 MG PO; TRADJENTA5 MG PO; TRESIBA100 UNIT/1 SQ; VITAMIN D400 UNIT PO; WARFARIN SODIUM3 MG PO
== END ==
LOC: US 08:10
PROVIDERS: ATTEND Family Medicine
DX: R10.33 Periumbilical pain (principal); J90 Pleural effusion, not elsewhere classified
CPT/HCPCS: 76700

== ENCOUNTER 2020-08-18 21:11 | Inpatient (IN) | payer MEDICARE ==
[~2020-08-18] VITALS: Ht 152.4 cm; Wt 47.7 kg
[2020-08-18 22:06] LABS: BASOPHILS % 0.3 % (0.0-1.0); EOSINOPHILS # (AUTO) 0.1 (0.0-0.4); EOSINOPHILS % 0.5 % (0.0-6.0); HEMOGLOBIN 11.8 g/dL (12.0-16.0); LYMPHOCYTES % 14.9 % (18.0-39.1); MEAN CORPUSCULAR HEMOGLOBIN 28.9 pg (28-32); MEAN CORPUSCULAR HGB CONC 31.9 g/dL (31-35); MEAN CORPUSCULAR VOLUME 90.5 fL (81-99); MONOCYTES # (AUTO) 0.6 (0.2-0.8); MONOCYTES % 4.3 % (4.4-11.3); NEUTROPHILS # (AUTO) 10.5 (2.1-6.9); NEUTROPHILS % 79.2 % (38.7-80.0); PLATELET COUNT 180 x10e3/uL (140-360); RED BLOOD COUNT 4.09 x10e6/uL (3.6-5.1); RED CELL DISTRIBUTION WIDTH 15.5 % (11.7-14.4)
[2020-08-18 22:22] LABS: ALBUMIN 3.5 g/dL (3.5-5.0); ALBUMIN/GLOBULIN RATIO 0.9 (0.8-2.0); ANION GAP 16.5 mmol/L (8-16); CALCIUM 8.9 mg/dL (8.4-10.2); CREATININE, SERUM 1.37 mg/dL (0.57-1.11); POTASSIUM 3.5 mmol/L (3.5-5.1)
[2020-08-18 22:28] LABS: CREATINE KINASE MB 0.9 ng/mL (0-5.0)
[2020-08-18] MEDS ORDERED: FUROSEMIDE INJ 10 MG/ML 4 ML VIAL IV ONE (23:45)
[2020-08-19] VITALS (8 sets, daily range): BP systolic 57–152; BP diastolic 37–86
[2020-08-19] MEDS ORDERED: DEXTROSE 50% SYRINGE 50 ML IV PRN (02:00)
[2020-08-19] MEDS ORDERED: INSULIN REGULAR, HUMAN 100 UNIT/1 ML 3ML VIAL IV ONE (02:00)
[2020-08-19] MEDS ORDERED: INSULIN REGULAR, HUMAN 100 UNIT/1 ML 3ML VIAL ONE (02:15)
[2020-08-19] MEDS ORDERED: INSULIN REGULAR, HUMAN 100 UNIT/1 ML 3ML VIAL SQ SCH (07:30)
[2020-08-19 08:53] LABS: INR 1.42; PROTHROMBIN TIME 18.3 seconds (11.9-14.5)
[2020-08-19] MEDS ORDERED: NON-FORMULARY MEDICATION (Linagliptin (Tradjenta) 5 MG) PO SCH (09:00)
[2020-08-19] MEDS ORDERED: FUROSEMIDE INJ 10 MG/ML 4 ML VIAL IV SCH (09:00)
[2020-08-19] MEDS ORDERED: INSULIN DEGLUDEC SC SCH (09:00)
[2020-08-19] MEDS: LEVOTHYROXINE SODIUM 50 MCG TAB PO SCH (09:05)
[2020-08-19] MEDS: GABAPENTIN 100 MG CAP PO SCH ×2 (09:05→17:32)
[2020-08-19] MEDS: LISINOPRIL 10 MG TAB PO SCH (09:05)
[2020-08-19] MEDS: INSULIN LISPRO 100 UNIT/1 ML 3ML VIAL SQ SCH ×4 (09:06→21:00)
[2020-08-19 09:07] LABS: CLARITY,URINE CLEAR (CLEAR); COLOR,URINE YELLOW (YELLOW); KETONES,URINE NEGATIVE (NEGATIVE); LEUKOCYTE ESTERASE ,URINE TRACE (NEGATIVE); NITRITE,URINE NEGATIVE (NEGATIVE); PROTEIN,URINE DIPSTICK TRACE (NEGATIVE); URINE UROBILINOGEN 1 mg/dL (0.2 - 1)
[2020-08-19] MEDS: INSULIN GLARGINE 100 UNITS/ML VIAL SQ SCH ×2 (09:07→17:00)
[2020-08-19 09:20] LABS: RBC,URINE 0-5 /HPF (0-5)
[2020-08-19 09:21] LABS: BACTERIA,URINE RARE /HPF; EPITHELIAL CELLS,URINE FEW /LPF
[2020-08-19] MEDS ORDERED: ENOXAPARIN SODIUM INJ 100 MG/ML SYR SC SCH (11:00)
[2020-08-19] MEDS: ENOXAPARIN SOD INJ 60 MG/0.6 ML SYR SC SCH ×2 (13:01→22:08)
[2020-08-19] MEDS ORDERED: DEXTROSE 50% SYRINGE 50 ML IV ONE ×2 (15:37→18:06)
[2020-08-19] MEDS: DEXTROSE 50% SYRINGE 50 ML IV PRN ×3 (16:30→21:40)
[2020-08-19] MEDS: WARFARIN SOD 2 MG TAB PO SCH ×2 (17:00→17:32)
[2020-08-19] MEDS ORDERED: WARFARIN SOD 3 MG TAB PO SCH (17:00)
[2020-08-19] MEDS: FUROSEMIDE INJ 10 MG/ML 4 ML VIAL IV SCH (17:35)
[2020-08-19] MEDS ORDERED: ENTRESTO 24 MG1 EACH (17:53)
[2020-08-19] MEDS ORDERED: DIGOXIN125 MCG PO (17:53)
[2020-08-19] MEDS ORDERED: LANTUS 3ML100 UNITS/ SC (17:53)
[2020-08-19] MEDS: SIMVASTATIN 40 MG TAB PO SCH (21:00)
[2020-08-19] MEDS: CARVEDILOL 3.125 MG TAB PO SCH (21:00)
[2020-08-19] MEDS ORDERED: DEXTROSE 5%/0.9% SOD CHL 1,000 ML IV SCH (22:15)
[2020-08-20] VITALS (8 sets, daily range): BP systolic 82–133; BP diastolic 51–84
[2020-08-20] MEDS: DEXTROSE 50% SYRINGE 50 ML IV PRN (02:10)
[2020-08-20 05:11] LABS: BASOPHILS # (AUTO) 0.1 (0.0-0.1); BASOPHILS % 0.7 % (0.0-1.0); EOSINOPHILS # (AUTO) 0.3 (0.0-0.4); EOSINOPHILS % 2.6 % (0.0-6.0); HEMATOCRIT 37.6 % (34.2-44.1); HEMOGLOBIN 12.1 g/dL (12.0-16.0); LYMPHOCYTES # (AUTO) 2.3 (1.0-3.2); LYMPHOCYTES % 18.8 % (18.0-39.1); MEAN CORPUSCULAR HEMOGLOBIN 29.4 pg (28-32); MEAN CORPUSCULAR HGB CONC 32.2 g/dL (31-35); MEAN CORPUSCULAR VOLUME 91.3 fL (81-99); MONOCYTES # (AUTO) 0.5 (0.2-0.8); MONOCYTES % 4.5 % (4.4-11.3); NEUTROPHILS # (AUTO) 8.8 (2.1-6.9); NEUTROPHILS % 72.8 % (38.7-80.0); PLATELET COUNT 176 x10e3/uL (140-360); RED BLOOD COUNT 4.12 x10e6/uL (3.6-5.1); RED CELL DISTRIBUTION WIDTH 15.5 % (11.7-14.4)
[2020-08-20 05:34] LABS: ALBUMIN 2.8 g/dL (3.5-5.0); ALBUMIN/GLOBULIN RATIO 0.9 (0.8-2.0); ANION GAP 12.1 mmol/L (8-16); CALCIUM 8.5 mg/dL (8.4-10.2); CHOL/HDL RATIO 3.4 (3.0-3.6); CREATININE, SERUM 1.08 mg/dL (0.57-1.11); MAGNESIUM 1.6 MG/DL (1.3-2.1); POTASSIUM 3.1 mmol/L (3.5-5.1)
[2020-08-20] MEDS: LEVOTHYROXINE SODIUM 50 MCG TAB PO SCH (06:12)
[2020-08-20] MEDS: DEXTROSE 5%/0.9% SOD CHL 1,000 ML IV SCH ×2 (06:53→22:07)
[2020-08-20] MEDS ORDERED: INSULIN GLARGINE 100 UNITS/ML VIAL SQ SCH (09:00)
[2020-08-20] MEDS: LISINOPRIL 10 MG TAB PO SCH (09:00)
[2020-08-20] MEDS: GABAPENTIN 100 MG CAP PO SCH ×2 (09:00→17:00)
[2020-08-20] MEDS: FUROSEMIDE INJ 10 MG/ML 4 ML VIAL IV SCH ×2 (09:10→19:42)
[2020-08-20] MEDS: ENOXAPARIN SOD INJ 60 MG/0.6 ML SYR SC SCH ×2 (09:12→22:07)
[2020-08-20] MEDS: DIGOXIN 0.125 MG TAB PO SCH (09:12)
[2020-08-20] MEDS: CHOLECALCIFEROL 1,000 UNIT TAB PO SCH (09:12)
[2020-08-20] MEDS: CARVEDILOL 3.125 MG TAB PO SCH ×2 (09:12→22:07)
[2020-08-20] MEDS ORDERED: POTASSIUM CHLORIDE 20 MEQ TAB CR PO ONE (12:30)
[2020-08-20] MEDS: SIMVASTATIN 40 MG TAB PO SCH (22:07)
[2020-08-21] VITALS (8 sets, daily range): BP systolic 98–122; BP diastolic 49–66
[2020-08-21 05:23] LABS: ANION GAP 12.3 mmol/L (8-16); CALCIUM 8.7 mg/dL (8.4-10.2); CREATININE, SERUM 0.94 mg/dL (0.57-1.11); POTASSIUM 3.3 mmol/L (3.5-5.1)
[2020-08-21] MEDS: LEVOTHYROXINE SODIUM 50 MCG TAB PO SCH (06:00)
[2020-08-21] MEDS: FUROSEMIDE INJ 10 MG/ML 4 ML VIAL IV SCH ×2 (08:45→16:51)
[2020-08-21] MEDS: CARVEDILOL 3.125 MG TAB PO SCH ×2 (08:46→20:57)
[2020-08-21] MEDS: LISINOPRIL 10 MG TAB PO SCH (08:46)
[2020-08-21] MEDS: GABAPENTIN 100 MG CAP PO SCH ×2 (08:46→16:51)
[2020-08-21] MEDS: ENOXAPARIN SOD INJ 60 MG/0.6 ML SYR SC SCH ×2 (08:46→20:57)
[2020-08-21] MEDS: CHOLECALCIFEROL 1,000 UNIT TAB PO SCH (08:46)
[2020-08-21] MEDS: DIGOXIN 0.125 MG TAB PO SCH (09:02)
[2020-08-21] MEDS: SIMVASTATIN 40 MG TAB PO SCH (20:57)
[2020-08-22] VITALS (9 sets, daily range): BP systolic 104–117; BP diastolic 51–59
[2020-08-22] MEDS: LEVOTHYROXINE SODIUM 50 MCG TAB PO SCH (06:03)
[2020-08-22] MEDS: GABAPENTIN 100 MG CAP PO SCH ×2 (09:00→17:00)
[2020-08-22] MEDS: LISINOPRIL 10 MG TAB PO SCH (09:00)
[2020-08-22] MEDS: FUROSEMIDE INJ 10 MG/ML 4 ML VIAL IV SCH ×2 (09:15→17:08)
[2020-08-22] MEDS: CHOLECALCIFEROL 1,000 UNIT TAB PO SCH (09:16)
[2020-08-22] MEDS: CARVEDILOL 3.125 MG TAB PO SCH ×2 (09:16→21:35)
[2020-08-22] MEDS: ENOXAPARIN SOD INJ 60 MG/0.6 ML SYR SC SCH ×2 (09:16→21:35)
[2020-08-22] MEDS: DIGOXIN 0.125 MG TAB PO SCH (09:25)
[2020-08-22] MEDS ORDERED: ALBUTEROL SULF 0.083% NEB SOLN 3 ML NEB NEB PRN (14:30)
[2020-08-22] MEDS: SIMVASTATIN 40 MG TAB PO SCH (21:35)
[2020-08-23] VITALS (7 sets, daily range): BP systolic 85–109; BP diastolic 46–62
[2020-08-23 05:53] LABS: BASOPHILS % 0.5 % (0.0-1.0); EOSINOPHILS # (AUTO) 0.1 (0.0-0.4); EOSINOPHILS % 1.4 % (0.0-6.0); HEMATOCRIT 32.8 % (34.2-44.1); HEMOGLOBIN 10.5 g/dL (12.0-16.0); LYMPHOCYTES # (AUTO) 1.7 (1.0-3.2); LYMPHOCYTES % 19.2 % (18.0-39.1); MEAN CORPUSCULAR HEMOGLOBIN 29.2 pg (28-32); MEAN CORPUSCULAR VOLUME 91.4 fL (81-99); MONOCYTES # (AUTO) 0.5 (0.2-0.8); MONOCYTES % 5.7 % (4.4-11.3); NEUTROPHILS # (AUTO) 6.4 (2.1-6.9); NEUTROPHILS % 72.7 % (38.7-80.0); PLATELET COUNT 153 x10e3/uL (140-360); RED BLOOD COUNT 3.59 x10e6/uL (3.6-5.1); RED CELL DISTRIBUTION WIDTH 15.3 % (11.7-14.4)
[2020-08-23 06:11] LABS: ANION GAP 14.2 mmol/L (8-16); CALCIUM 8.2 mg/dL (8.4-10.2); CREATININE, SERUM 0.99 mg/dL (0.57-1.11); POTASSIUM 3.2 mmol/L (3.5-5.1)
[2020-08-23] MEDS: LEVOTHYROXINE SODIUM 50 MCG TAB PO SCH (06:15)
[2020-08-23] MEDS: DIGOXIN 0.125 MG TAB PO SCH (08:36)
[2020-08-23] MEDS: GABAPENTIN 100 MG CAP PO SCH ×2 (08:36→16:41)
[2020-08-23] MEDS: FUROSEMIDE INJ 10 MG/ML 4 ML VIAL IV SCH ×2 (08:36→16:41)
[2020-08-23] MEDS: CARVEDILOL 3.125 MG TAB PO SCH ×2 (08:36→21:15)
[2020-08-23] MEDS: CHOLECALCIFEROL 1,000 UNIT TAB PO SCH (08:37)
[2020-08-23] MEDS: LISINOPRIL 10 MG TAB PO SCH (08:37)
[2020-08-23] MEDS: ENOXAPARIN SOD INJ 60 MG/0.6 ML SYR SC SCH ×2 (08:37→21:15)
[2020-08-23] MEDS ORDERED: POTASSIUM CHLORIDE 20 MEQ TAB CR PO NR (16:26)
[2020-08-23] MEDS: SIMVASTATIN 40 MG TAB PO SCH (21:15)
[2020-08-24] VITALS (8 sets, daily range): BP systolic 101–118; BP diastolic 56–71
[2020-08-24] MEDS: LEVOTHYROXINE SODIUM 50 MCG TAB PO SCH (06:20)
[2020-08-24] MEDS: FUROSEMIDE INJ 10 MG/ML 4 ML VIAL IV SCH ×2 (09:00→17:18)
[2020-08-24] MEDS: CHOLECALCIFEROL 1,000 UNIT TAB PO SCH (09:01)
[2020-08-24] MEDS: LISINOPRIL 10 MG TAB PO SCH (09:01)
[2020-08-24] MEDS: GABAPENTIN 100 MG CAP PO SCH ×2 (09:01→17:18)
[2020-08-24] MEDS: CARVEDILOL 3.125 MG TAB PO SCH ×2 (09:01→22:29)
[2020-08-24] MEDS: ENOXAPARIN SOD INJ 60 MG/0.6 ML SYR SC SCH ×2 (09:01→22:29)
[2020-08-24] MEDS: DIGOXIN 0.125 MG TAB PO SCH (09:01)
[2020-08-24] MEDS: SIMVASTATIN 40 MG TAB PO SCH (22:29)
[2020-08-25 00:50] VITALS: BP 116/64
[2020-08-25 05:41] VITALS: BP 121/59
[2020-08-25 05:50] LABS: ALBUMIN/GLOBULIN RATIO 0.9 (0.8-2.0); CALCIUM 8.6 mg/dL (8.4-10.2); CREATININE, SERUM 1.19 mg/dL (0.57-1.11)
[2020-08-25] MEDS: LEVOTHYROXINE SODIUM 50 MCG TAB PO SCH (06:00)
[2020-08-25 08:24] VITALS: BP 108/54
[2020-08-25 08:50] VITALS: BP 108/54
[2020-08-25 09:26] LABS: INR 1.29
[2020-08-25] MEDS: FUROSEMIDE INJ 10 MG/ML 4 ML VIAL IV SCH (09:37)
[2020-08-25] MEDS: CARVEDILOL 3.125 MG TAB PO SCH (09:38)
[2020-08-25] MEDS: GABAPENTIN 100 MG CAP PO SCH (09:38)
[2020-08-25] MEDS: DIGOXIN 0.125 MG TAB PO SCH (09:38)
[2020-08-25] MEDS: CHOLECALCIFEROL 1,000 UNIT TAB PO SCH (09:39)
[2020-08-25] MEDS: LISINOPRIL 10 MG TAB PO SCH (09:39)
[2020-08-25] MEDS: ENOXAPARIN SOD INJ 60 MG/0.6 ML SYR SC SCH (09:39)
[2020-08-25 09:50] VITALS: BP 108/54
[2020-08-25 11:25] VITALS: BP 92/51
[2020-08-25] MEDS ORDERED: WARFARIN SOD 5 MG TAB PO SCH (17:00)
== END 2020-08-25 11:42 | disposition home health service (06) | DRG 291 ==
LOC: ER 21:38 → ERHOLD 08-19 06:03 → MED/SURG2 08-19 06:05
PROVIDERS: ADMIT Family Medicine; ATTEND Family Medicine
DX: I13.0 Hypertensive heart and chronic kidney disease with heart failure and stage 1 through stage 4 chronic kidney disease, or unspecified chronic kidney disease (principal); I50.43 Acute on chronic combined systolic (congestive) and diastolic (congestive) heart failure; E46 Unspecified protein-calorie malnutrition; Z79.01 Long term (current) use of anticoagulants; Z95.2 Presence of prosthetic heart valve; I25.10 Atherosclerotic heart disease of native coronary artery without angina pectoris; Z95.1 Presence of aortocoronary bypass graft; E78.5 Hyperlipidemia, unspecified; Z68.20 Body mass index [BMI] 20.0-20.9, adult; Z95.0 Presence of cardiac pacemaker; E03.9 Hypothyroidism, unspecified; Z20.822 Contact with and (suspected) exposure to COVID-19
CPT/HCPCS: 36415; 71045; 71046; 80048; 80053; 80061; 80162; 81001; 82550; 82553; 82948; 83036; 83525; 83735; 83880; 84443; 84484; 85025; 85610; 85730; 87086; 93005; 93306; 99251; 99284; J1650; J1817; J1940; J7042; J7799; U0002